=== PATIENT | male | born 1965 | race Caucasian/White ===

== ENCOUNTER 2022-07-13 13:52 | Outpatient (CLI) | payer OTHER, MEDICAID, SELFPAY ==
--- NOTE | 2022-07-13 06:00 | DI.RAD_ITS ---
Exam(s) XR PAIN CLINIC FLUORO JOINT IN EXAM: XR PAIN CLINIC FLUORO JOINT IN CLINICAL HISTORY: Dx: Osteoarthritis of the knee TECHNIQUE: 2D and realtime digital imaging was performed. COMPARISON: No exams were available for comparison FINDINGS: C-arm fluoroscopy was utilized by Dr. Benavides. Please see Dr. Benavides procedure note. IMPRESSION: RADIATION DOSE DELIVERED: saray Garsia 4.76 mGy
[2022-07-13 14:17] VITALS: BP 127/81; PULSE 61; RESP 20; TEMP 37; O2SAT 94
--- NOTE | 2022-07-13 14:56 | PDOC.PAIN_ITS ---
Pain Clinic Procedure Note Procedure Note Procedure Note: RIGHT GENICULAR NERVE BLOCK Date of Service: July 13, 2022 Patient: YVETTE BOOKER Provider: Murali Benavides DO, MPH Pre-operative diagnosis: Right knee pain Post-operative diagnosis: Same Pre-procedure pain: VAS= 8/10 COMMENTS: He was previously evaluated by orthopedics and his PCP. Many treatments have been attempted without significant relief. YVETTE BOOKER has been referred to the [facility] for RIGHT ge nicular nerve block. YVETTE was interviewed and the medical record reviewed. There were no medical, pharmacologic, radiographic or other structural contraindications to attempting fluoroscopically guided RIGHT genicular nerve block. Risks and potential side effects as well as potential benefit of the procedure were reviewed with YVETTE, and HIS voiced concerns were addressed. After I believed that the patient was completely informed, the printed consent form was signed. Standard time-out procedure was performed. YVETTE was placed in the supine position on the fluoroscopy table and automated blood pressure cuff and pulse oximeter applied. The skin entry points for approaching RIGHT superolateral genicular nerve, the superomedial genicular nerve, the terminal branch of the nerve vastus intermedius and the inferomedial genicular was identified under the most advantageous fluoroscopic view and marked. Following thorough Chlorhexadine preparation of the skin and draping, 1% lidocaine infiltration of the skin entry point and subcutaneous tissues was accomplished using a 1.5 25G needle. Next, the 3.5 25G spinal needle was advanced to os at the location of the specific nerve root using fluoroscopic guidance. Next, 1 ml of 0.5% Bupivacaine was injected at each site. The needles were removed without difficulty. YVETTE's vital signs were stable throughout the procedure and were as recorded in the docflowsheet by the nursing staff. If given, dosages of intravenous drugs for anxiolysis and analgesia were documented in MAR. Follow up plans and appointments were discussed with the YVETTE . Post procedure instruction was given as documented in nursing documentation and having met discharge criteria, YVETTE was discharged from the [facility]. COMMENTS: No apparent complications. Post-procedure pain: VAS = 0/10. The patient will keep track of her RIGHT knee pain over the next four hours. If YVETTE has sufficient pain relief, YVETTE will be a candidate for radiofrequency ablation at the same nerves. Micky WJ1, Abdullahi SJ, Cristi SalehG, Naman SalehG, Michele MAI, Florina PH, Santino JW. Radiofrequency treatment relieves chronic knee osteoarthritis pain: a double-blind randomized controlled trial. Pain. 2011 Dec;152(3):481-7. doi: 10.1016/j.pain.2010.09.029. Adelia S1, Ilan ON2, Cam Y3, ?zl?lerden P2, Satish U1, Dong ?m?rl? I. Which one is more effective for the clinical treatment of chronic pain in knee osteoarthritis: radiofrequency neurotomy of the genicular nerves or intra- articular injection? Int J Rheum Dis. 2016 May 27. F/U with our office with his 1-4 hour post-procedure pain scores. Murali Benavides DO, MPH [facility]
[2022-07-13] MEDS: Bupivacaine 0.5% Pres-Free 10 ML VIAL IJ (15:08)
[2022-07-13] MEDS: Omnipaque 240 MG/ML 50 ML BTL IJ (15:08)
[2022-07-13 15:09] VITALS: PULSE 77; O2SAT 98
== END 2022-07-13 13:53 | disposition home or self-care (01) ==
LOC: PC 13:54
PROVIDERS: PCP Physician Assistant; Visit Provider Preventive Medicine Occupational Medicine
DX: M25.561 Pain in right knee (principal)
CPT/HCPCS: 64454; 77002; Q9967

== ENCOUNTER 2022-08-24 13:01 | Outpatient (CLI) | payer MEDICARE, MEDICAID, SELFPAY ==
--- NOTE | 2022-08-24 06:00 | DI.RAD_ITS ---
Exam(s) XR PAIN CLINIC FLUORO JOINT IN EXAM: XR PAIN CLINIC FLUORO JOINT IN CLINICAL HISTORY: DX: right knee osteoarthritis TECHNIQUE: 2D and realtime digital imaging was performed. CONTRAST MATERIAL: Refer to procedure report. COMPARISON: No exams were available for comparison FINDINGS: Fluoroscopy was provided for Dr. Benavides during the performance of a right lower extremity injection. Please refer to the procedure report for complete details. Ka,r=3.9 mGy IMPRESSION:
[2022-08-24] MEDS: Midazolam 2 MG/2 ML VIAL IVP (13:51)
[2022-08-24] MEDS: Lactated Ringers 500 ML 80 ML IV (14:14)
[2022-08-24 14:25] VITALS: BP 144/92; PULSE 77; RESP 18; O2SAT 95
--- NOTE | 2022-08-24 14:28 | PDOC.PAIN_ITS ---
Date of service: 08/24/22 Time of Service: 14:28 Pain Clinic Procedure Note Procedure Note Procedure Note: RIGHT GENICULAR NERVE RADIOFREQUENCY ABLATION WITH THE COOLIEF MACHINE Date of Service: August 24, 2022 Patient: Ariana Canas Provider: Murali Benavides DO, MPH Pre-procedure pain VAS 6/10. Pre-operative diagnosis: Right knee pain Post-operative diagnosis: Right knee pain COMMENTS: Previous Genicular nerve block to the RIGHT knee. Ariana Canas has been referred to the [facility] for RIGHT genicular nerve radiofrequency ablation. Ariana was interviewed and the medical record reviewed. There were no medical, pharmacologic, radiographic or other structural contraindications to attempting fluoroscopically guided RIGHT genicular nerve radiofrequency ablation. Risks and potential side effects as well as potential benefit of the procedure were reviewed with Ariana Canas , and HIS voiced concerns were addressed. After I believed that the patient was completely informed, the printed consent form was signed. Standard time-out procedure was performed. Ariana was placed in the supine position on the fluoroscopy table and automated blood pressure cuff and pulse oximeter applied. The skin entry points for approaching RIGHT superolateral genicular nerve, the superomedial genicular nerve and the inferomedial genicular was identified under the most advantageous fluoroscopic view and marked. Following thorough Chlorhexadine preparation of the skin and draping, 1% lidocaine infiltration of the skin entry point and subcutaneous tissues was accomplished using a 1.5 25G needle. Next, the 10 cm 18G RF Cannula with a 10 mm active tip was advanced to os at the location of the specific nerve roots (3) using fluoroscopic guidance. Next, sensory and motor testing was performed and no abnormal findings were found. Next, 1 cc of 2% Lidocaine was injected at each site. The lesion was then created with 80 degrees C for 90 seconds. Each needle was advance 1 cm and the lesion was completed again. Each cannula was advanced until the tip reached the posterior aspect of the bone shaft. 1/3 cc of Depomedrol (40 mg/cc) was then injected at each site followed by 2 cc of 0.5% Bupivacaine as the needle was withdrawn. The needles were removed without difficulty. Ariana's vital signs were stable throughout the procedure and were as recorded in the docflowsheet by the nursing staff. If given, dosages of intravenous drugs for anxiolysis and analgesia were documented in MAR. Follow up plans and appointments were discussed with the Ariana Canas . Post procedure instruction was given as documented in nursing documentation and having met discharge criteria, Ariana was discharged from the [facility]. COMMENTS: No complications. Post-procedure pain VAS was 1/10. Micky WJ1, Abdullahi SJ, Cristi JG, Naman SalehG, Michele MAI, Florina PH, Santino JW. Radiofrequency treatment relieves chronic knee osteoarthritis pain: a double-blind randomized controlled trial. Pain. 2011 Dec;152(3):481-7. doi: 10.1016/j.pain.2010.09.029. Adelia S1, Ilan ON2, Cam Y3, ?zl?lerden P2, Satish U1, Dong ?m?rl? I. Which one is more effective for the clinical treatment of chronic pain in knee osteoarthritis: radiofrequency neurotomy of the genicular nerves or intra- articular injection? Int J Rheum Dis. 2016 May 27. F/U with our office as needed Murali Benavides DO, MPH [facility]-Pain Management [facility]
[2022-08-24] MEDS: methylPREDNISolone ACETATE 40 MG/ML VIAL IJ (14:29)
[2022-08-24] MEDS: Lidocaine 2% Pres-Free 5 ML VIAL IJ (14:29)
[2022-08-24] MEDS: Bupivacaine 0.5% Pres-Free 10 ML VIAL IJ (14:29)
== END 2022-08-24 13:02 | disposition home or self-care (01) ==
PROVIDERS: PCP Physician Assistant; Visit Provider Preventive Medicine Occupational Medicine
DX: M25.561 Pain in right knee (principal)
CPT/HCPCS: 64624; 77002; J1030; J2250

== ENCOUNTER 2024-03-07 11:26 | Outpatient (CLI) | payer MEDICARE, MEDICAID, SELFPAY ==
--- NOTE | 2024-03-07 06:00 | DI.RAD_ITS ---
Exam(s) XR PAIN CLINIC FLUORO JOINT IN EXAM: XR PAIN CLINIC FLUORO JOINT IN CLINICAL HISTORY: DX: Right knee Osteoarthritis. TECHNIQUE: Fluoroscopy was provided for the referring physician for guidance with performing pain cl inic injection procedure. COMPARISON: No exams were available for comparison FINDINGS: Please see procedure note for details. Fluoro time: 52.4 seconds RADIATION DOSE DELIVERED: saray Garsia=3.54 mGy
[2024-03-07 11:40] VITALS: BP 163/89; PULSE 74; RESP 20; TEMP 36.7; O2SAT 94
[2024-03-07] MEDS: Lactated Ringers 500 ML 80 ML IV (12:40)
[2024-03-07] MEDS: fentaNYL 100 MCG/2 ML VIAL IVP (12:40)
[2024-03-07] MEDS: Nerve Block Tray 1 EACH MC (13:13)
[2024-03-07] MEDS: Lidocaine 2% Multi-Dose 20 ML VIAL IJ (13:15)
[2024-03-07] MEDS: Bupivacaine 0.5% Pres-Free 10 ML VIAL IJ (13:15)
[2024-03-07] MEDS: methylPREDNISolone ACETATE 40 MG/ML VIAL IJ (13:16)
[2024-03-07 13:21] VITALS: BP 137/97; PULSE 77; RESP 13; O2SAT 91
--- NOTE | 2024-03-07 13:28 | PDOC.PAIN_ITS ---
Date of service: 03/07/24 Time of Service: 13:28 Pain Managment Procedure Note Procedure Note Procedure Note: PROCEDURE NOTE RIGHT GENICULAR NERVE RADIOFREQUENCY ABLATION Date of Service: March 07, 2024 Patient: Ariana Canas Provider: Marguerite Mosley DO, MPH Ariana Canas has been referred to the [facility] for Right genicular nerve radiofrequency ablation with the [employer] machine. Pre-operative diagnosis: Pain in right knee M25.561 Post-operative diagnosis: Same Pre-Procedure Pain: VAS=8/10 Comments: Previous genicular nerve blocks to the Right knee. He had >6 months of >50% pain relief with his last right knee RFA. PROCEDURE: 1. Superolateral genicular branch from the vastus lateralis 2. Superomedial genicular branch from the vastus medialis 3. Inferomedial genicular branch from the saphenous nerve 4. Terminal branch of the nerve vastus intermedius Ariana was interviewed and the medical record reviewed. There were no medical, pharmacologic, radiographic or other structural contraindications to attempting fluoroscopically guided Right genicular nerve radiofrequency ablation. Risks and potential side effects as well as potential benefit of the procedure were reviewed with Ariana Canas , and the patient's voiced concerns were addressed. After I believed that the patient was completely informed, the printed consent form was signed. Standard time-out procedure was performed. Ariana Canas was brought into brought to the procedure room and placed on the fluoroscopy table in a comfortable supine position and automated blood pressure cuff and pulse oximeter applied. A grounding pad was placed on the right ankle. The place for needle placement was obtained by manual palpation with radiographic confirmation. The skin entry points for approaching Right superolateral genicular nerve, the superomedial genicular nerve, nerve of the vastus intermedius and the inferomedial genicular was identified under the most advantageous fluoroscopic view and marked. Following thorough Chlorhexadine preparation of the skin and draping, 1% lidocaine infiltration of the skin entry point and subcutaneous tissues was accomplished using a 1.5 25G needle. Next, the 17G 50 mm radiofrequency cannula needle with a 4mm active tip was advanced to os at the location of the specific nerve roots (4) using fluoroscopic guidance. Next, m otor testing was performed and no abnormal findings were found. Next, 1 cc of 2% Lidocaine was injected at each site after negative aspiration. The lesion was then created with 80 degrees Celsius for 2 minutes and 30 seconds each. 1/4 cc of Depo-Medrol (40 mg/cc) was then injected at each site followed by 1 cc of 0.5% Bupivacaine as the needle was withdrawn. There was no unusual discomfort expressed by Ariana. The needles were withdrawn without difficulty. Ariana was observed and was without hemodynamic, neurologic, or allergic reactions.? Fluoroscopic images were digitally archived. Ariana's vital signs were stable throughout the procedure and were as recorded in the docflowsheet by the nursing staff. If given, dosages of intravenous drugs for anxiolysis and analgesia were documented in MAR. POST PROCEDURE EVALUATION: IMPRESSION: 1. Medication given is documented in the MAR 2. Follow up plan: Ariana to contact [facility] as needed. This procedure may be repeated if the patient achieves at least 50% improvement in pain and/or function for at least 6 months. 3. Estimated Blood Loss: <5ml 4. Fluoroscopy time: Documented in the EMR Follow up plans and appointments were discussed with Ariana. Post procedure instruction was given as documented in nursing documentation and having met discharge criteria, Ariana was discharged from the [facility]. COMMENTS: No apparent complications. Post-procedure pain: VAS= 3/10. Weeks WJ1, Abdullahi SJ, Cristi JG, Naman JG, Michele MAI, Florina PH, Santino JW. Radiofrequency treatment relieves chronic knee osteoarthritis pain: a double-blind randomized controlled trial. Pain. 2010;152(3):481-7. doi: 10.1016/j.pain.2010.09.029. Adelia S1, Ilan ON2, Cam Y3, ?zl?brayden P2, Satish U1, Dong ?m?rl? I. Which one is more effective for the clinical treatment of chronic pain in knee osteoarthritis: radiofrequency neurotomy of the genicular nerves or intra-articular injection? Int J Rheum Dis. 2016 May 27. I personally completed the entire procedure. MARGUERITE MOSLEY DO, MPH [facility] - Subspecialty board certification in Pain Medicine [facility]
== END 2024-03-07 11:27 | disposition home or self-care (01) ==
PROVIDERS: PCP Registered Nurse; Visit Provider Preventive Medicine Occupational Medicine
DX: M25.561 Pain in right knee (principal)
CPT/HCPCS: 64624; 77002; J0665; J1010; J2003; J3010

== ENCOUNTER → 2024-04-24 14:09 | Outpatient (CLI) | payer MEDICARE, MEDICAID, SELFPAY ==
--- NOTE | 2024-04-24 13:13 | DI.RAD_ITS ---
Exam(s) XR KNEE LT 3V AP,LAT,MAL EXAM: XR KNEE LT 3V AP,LAT,MAL CLINICAL HISTORY: M25.562 Left knee pain - likely medial OA. TECHNIQUE: 2D digital imaging was performed. Three views. COMPARISON: CR LEFT KNEE LIMITED 1 OR 2 VIEWS from 05/24/2016 FINDINGS: BONES: No acute fracture is present. No bony destructive lesion is seen. JOINTS: Mild medial femoral tibial joint space narrowing. Spurring at the medial femoral condyle and medial tibial plateau. No joint effusion is seen. SOFT TISSUE: Posterior loose body, likely in a Grande's cyst. IMPRESSION: Mild degenerative changes of the medial femoral tibial joint. Loose body in Grande cyst. DATA REPOSITORY: RADIATION DOSE DELIVERED:
--- OUTSIDE RECORDS SUMMARY | 2024-04-24 14:11 | XMS_ITS | Continuity of Care Document ---
Author Name Unknown Organization [facility] Address [address] [place] [address] Care Team Providers Care Spraying Machine Operator Name Role Phone Ray Bowen Primary Care Physician [facility] Date[facility]s): 10/25/22 - 10/25/22 [facility] [address] [place] [address] Discharge Disposition: Home or Self Care Attending Physician: Ray Bowen NP Admitting Physician: Ray Bowen NP Referring Physician: Ray Bowen TIE TAMPER Allergies, Adverse Reactions, Alerts Substance Reaction Severity Status doxycycline Mild Active amitriptyline 1 Dizziness Unknown Active buPROPion Unknown Active 1%22out of it%22 all the time-hard time waking up. very fatigued-i Assessment and Plan Future Appointments Future Scheduled Tests Radiology* CT Sinus w/ Contrast 10/26/22 Immunizations Given and Recorded Vaccine Date Status Refusal Reason tetanus/diphth/pertuss (Tdap) adult/adol 06/24/22 Given tetanus/diphth/pertuss (Tdap) adult/adol 12/04/20 Recorded tetanus/diphth/pertuss (Tdap) adult/adol 07/18/11 Recorded influenza, unspecified formulation 07/03/21 Record ed SARS-CoV-2 (COVID-19) mRNA-1273 vaccine 02/05/21 R ecorded SARS-CoV-2 (COVID-19) mRNA-1273 vaccine 01/08/21 R ecorded influenza virus vaccine, live 06/26/20 Recorded influenza virus vaccine, inactivated 07/25/14 Freddie rded influenza virus vaccine, inactivated 06/27/13 Freddie rded influenza virus vaccine, inactivated 08/21/12 Freddie rded influenza virus vaccine, inactivated 07/18/11 Freddie rded influenza virus vaccine, inactivated 10/04/10 Freddie rded influenza virus vaccine, inactivated 09/29/09 Freddie rded Medications cetirizine 10 mg oral tablet 10 mg = 1 tab, Oral, Daily, Take one tab daily., # 90 tab, 1 Refill(s), Pharmacy: [id number], 185, cm, 06/24/22 10:48:00 EDT, Height/Length Dosing, 133.81, kg, 06/24/22 10:48:00 EDT, WeightDosing Start Date: 09/19/22 Status: Ordered cyclobenzaprine 5 mg oral tablet 5 mg = 1 tab, Oral, TID, # 30 tab, 0 Refill(s), Pharmacy: [id number], 185.45, cm, 10/20/22 1:05:00 EST, Height/Length Dosing, 147.95, kg, 10/20/22 1:05:00 EST, Weight Dosing Start Date: 10/20/22 Stop Date: 10/30/22 Status: Ordered fluticasone 27.5 mcg/inh nasal spray 2 sprays, Nasal, Daily, PRN as needed for allergy symptoms, # 10 g, 0 Refill(s), Pharmacy: [facility], 185, cm, 06/24/22 10:48:00 EDT, Height/Length Dosing, 133.81, kg, 06/24/22 10:48:00 EDT, Weight Dosing Start Date: 09/16/22 Status: Ordered lisinopril 2.5 mg oral tablet 2.5 mg = 1 tab, Oral, Daily, # 90 tab, 3 Refill(s), Pharmacy: [facility], 185, cm, 06/24/22 10:48:00 EDT, Height/Length Dosing, 133.81, kg, 06/24/22 10:48:00 EDT, Weight Dosing Start Date: 09/25/22 Status: Ordered meloxicam 15 mg oral tablet 15 mg = 1 tab, Oral, Daily, Take with food, DON NOT TAKE WITH OTHER NSAID's, # 30 tab, 1 Refill(s),Pharmacy: [facility], 185, cm, 06/24/22 10:48:00 EDT, Height/Length Dosing, 133.81, kg, 06/24/22 10:48:00 EDT, Weight Dosing Start Date: 09/16/22 Status: Ordered omeprazole 20 mg oral delayed release capsule See Instructions, TAKE ONE CAPSULE BY MOUTH EVERY DAY, # 90 cap, 1 Refill(s), Pharmacy: [facility], 185, cm, 06/24/22 10:48:00 EDT, Height/Length Dosing, 133.81, kg, 06/24/22 10:48:00 EDT, Weight Dosing Start Date: 07/18/22 Status: Ordered simvastatin 20 mg oral tablet 20 mg = 1 tab, Oral, every night at bedtime, # 90 tab, 0 Refill(s) Start Date: 04/27/22 Status: Ordered tamsulosin 0.4 mg oral capsule 0.4 mg = 1 cap, Oral, Daily, TAKE TWO CAPSULES BY MOUTH EVERY DAY, # 90 cap, 3 Refill(s), Pharmacy:[id number], 185, cm, 06/24/22 10:48:00 EDT, Height/Length Dosing, 133.81, kg, 06/24/22 10:48:00 EDT, Weight Dosing Start Date: 10/05/22 Status: Ordered Ventolin HFA 90 mcg/inh inhalation aerosol 2 puffs, Inhale, every 4 hr, PRN as needed for wheezing, # 18 g, 2 Refill(s), Pharmacy: [facility], 185, cm, 06/24/22 10:48:00 EDT, Height/Length Dosing, 133.81, kg, 06/24/22 10:48:00 EDT, Weight Dosing Start Date: 09/19/22 Status: Ordered Problem List Condition Confirmation Course Effective Dates Status H ealth Status Informant AAA (abdominal aortic aneurysm) Confirmed Active BMI 40.0-44.9, adult Confirmed Active Cervical radiculopathy Confirmed Active Degeneration of lumbar intervertebral disc Confirmed Active Essential hypertension Confirmed 12/22/20 Active Gastroesophageal reflux disease without esophagitis Confirmed 12/04/20 Active Generalized anxiety disorder Confirmed Active Hyperlipidemia Confirmed Active Injury of tendon of the rotator cuff of shoulder Confirmed Active Insomnia Confirmed Active Kidney stone Confirmed Active Low back pain Confirmed Active Lower urinary tract symptoms due to benign prostatic hypertrophy Confirmed 12/04/20 Active Male infertility Confirmed Active Microscopic hematuria Confirmed Active Mononeuritis Confirmed Active Opioid abuse Confirmed Active Osteoarthritis of right knee joint Confirmed 10/01/21 Active Pain in thoracic spine Confirmed Active Chronic pain of right knee Confirmed Active Pain of left shoulder joint Confirmed 03/08/21 Active Prediabetes Confirmed 08/07/21 Active Sleep apnea Confirmed Active Smoker Confirmed 12/04/20 Active Snoring Confirmed Active Tremor Confirmed Active Ureteric stone Confirmed Active Procedures Procedure Date Related Diagnosis Body Site Status Appendectomy Completed Results Laboratory List Name Date Automated Diff 10/25/22 CBC w/ Diff 10/25/22 Comprehensive Metabolic Panel (CMP) 10/25 Lipid Panel 10/25/22 Most recent to oldest [Reference Range]: 1 WBC [5.0-10.0 x10^3/mcL] 12.2 x10^3/mcL *HI* (10/25/22 9:24 AM) RBC [4.6-6.0 x10^6/mcL] 5.3 x10^6/mcL (10/25/22 9:24 AM) Neutro Auto [40.0-75.0 %] 66.0 % (10/25/22 9:24 AM) Lymph Auto [20.0-50.0 %] 24.6 % (10/25/22 9:24 AM) Whiteside Auto [2.0-15.0 %] 6.5 % (10/25/22 9:24 AM) Basophil Auto [0.0-1.0 %] 0.8 % (10/25/22 9:24 AM) BUN [7-18 mg/dL] 10 mg/dL (10/25/22 9:24 AM) Cholesterol Total [50-200 mg/dL] 124 mg/ dL (10/25/22 9:24 AM) LDL [0-130 mg/dL] 59 mg/dL (10/25/22 9:24 AM) Glucose Level [74-106 mg/dL] 123 mg/dL *HI* (10/25/22 9:24 AM) Potassium Level [3.5-5.1 mmol/L] 4.0 mmo l/L (10/25/22 9:24 AM) MCV [80.0-96.0] 87.7 (10/25/22 9:24 AM) HDL [40-60 mg/dL] 32 mg/dL *LOW* (10/25/2224 AM) AST [15-37 unit/L] 14 unit/L *LOW* (10/25/22: AM) ALT [16-63 unit/L] 25 unit/L (10/25/22:24 AM) MCHC [31.0-35.0 g/dL] 33.8 g/dL (10/25/22:24 AM) Sodium Level [136-145 mmol/L] 135 mmol/L *LOW* (10/25/22:24 AM) Hct [41.0-51.0 %] 46.4 % (10/25/22 AM) Triglycerides [0-150 mg/dL] 164 mg/dL *HI* (10/25/22 AM) Calcium Level [8.5-10.1 mg/dL] 9.0 mg/dL (10/25/22: AM) Albumin Level [3.4-5.0 g/dL] 4.0 g/dL (10/25/22: AM) Protein Total [6.4-8.2 g/dL] 7.4 g/dL (10/25/22:24 AM) MCH [26.0-32.0 pg] 29.7 pg (10/25/22:24 AM) Neutro Absolute 8.1 x10^3/mcL *NA* (10/25/22: AM) Bilirubin Total [0.2-1.0 mg/dL] 0.7 mg/d L (10/25/22:24 AM) Hgb [14.0-18.0 g/dL] 15.7 g/dL (10/25/22:24 AM) Alk Phos [46-146 unit/L] 74 unit/L (10/25/22:24 AM) Platelets [130-450 x10^3/mcL] 211 x10^3/ mcL (10/25/22 9:24 AM) CO2 [21-32 mmol/L] 32 mmol/L (10/25/22:24 AM) eGFR Non-AA [>=60] 80 (1/10/23 9:24 AM) eGFR AA [>=60] 80 (10/25/22 9:24 AM) Chloride Level [98-107 mmol/L] 98 mmol/L (10/25/22 9:24 AM) RDW-CV [11.5-17.0 %] 13.1 % (10/25/22 9:24 AM) Imm Gran Auto [0.0-0.9 %] 0.6 % (10/25/22 9:24 AM) Creatinine Level [0.70-1.30 mg/dL] 1.08 mg/dL (10/25/22 9:24 AM) Eos, Auto [1.0-6.0 %] 1.5 % (10/25/22 9:24 AM) Social History Social History Type Response Tobacco Current everyday tob acco user Tobacco Use:. Down from a pack and a half to a pack now. per day. Sex Male Patient Care team information Personnel Name: Ray Bowen NP
--- OUTSIDE RECORDS SUMMARY | 2024-04-24 14:11 | XMS_ITS | Continuity of Care Document ---
Author Name Unknown Organization [facility] Address [address] [place] [address] Care Team Providers Care Heavy Equipment Supervisor Name Role Phone Ray Bowen Primary Care Physician Encounter [facility] Date(s): 09/16/22 - 09/16/22 [facility] [address] [place] [address] Discharge Disposition: Home or Self Care Attending Physician: Ray Bowen NP Admitting Physician: Ray Bowen NP Referring Physician: Ray Bowen SADDLE STITCH OPERATOR Allergies, Adverse Reactions, Alerts Substance Reaction Severity Status amitriptyline 1 Dizziness Unknown Active buPROPion Unknown Active 1%22out of it%22 all the time-hard time waking up. very fatigued-i Assessment and Plan Future Appointments Diagnostic Tests Pending * Urinalysis Notify Lab 09/16/22 Future Scheduled Tests Radiology* CT Renal Stone Study 09/16/22 Immunizations Given and Recorded Vaccine Date Status [...] virus vaccine, inactivated 09/29/09 Freddie rded Medications doxycycline hyclate 100 mg oral capsule 100 mg = 1 cap, Oral, BID, # 20 cap, 0 Refill(s), Pharmacy: [facility], 185, cm, 06/24/2210:48:00 EDT, Height/Length Dosing, 133.81, kg, 06/24/22 10:48:00 EDT, Weight Dosing Start Date: 09/16/22 Stop Date: 09/26/22 Status: Ordered fluticasone 27.5 mcg/inh nasal spray 2 sprays, Nasal, Daily, PRN as needed for allergy symptoms, # 10 g, 0 Refill(s), Pharmacy: [facility], 185, cm, 06/24/22 10:48:00 EDT, Height/Length Dosing, 133.81, kg, 06/24/22 10:48:00 EDT, Weight Dosing Start Date: 09/16/22 Status: Ordered lisinopril 2.5 mg oral tablet See Instructions, TAKE ONE TABLET BY MOUTH EVERY DAY, # 90 tab, 1 Refill(s), Pharmacy: [facility], 185, cm, 05/02/22 11:16:00 EDT, Height/Length Dosing, 133.8, kg, 05/02/22 11:16:00 EDT, Weight Dosing Start Date: 06/13/22 Status: Ordered meloxicam 15 mg oral tablet 15 mg = 1 tab, Oral, Daily, Take with food, DON NOT TAKE WITH OTHER NSAID's, # 30 tab, 1 Refill(s),Pharmacy: [facility], 185, cm, 06/24/22 10:48:00 EDT, Height/Length Dosing, 133.81, kg, 06/24/22 10:48:00 EDT, Weight Dosing Start Date: 09/16/22 Status: Ordered omeprazole 20 mg oral delayed release capsule See Instructions, TAKE ONE CAPSULE BY MOUTH EVERY DAY, # 90 cap, 1 Refill(s), Pharmacy: [facility], 185, cm, 06/24/22 10:48:00 EDT, Height/Length Dosing, 133.81, kg, 06/24/22 10:48:00 EDT, Weight Dosing Start Date: 07/18/22 Status: Ordered simvastatin 20 mg oral tablet 20 mg = 1 tab, Oral, every night at bedtime, # 90 tab, 0 Refill(s) Start Date: 04/27/22 Status: Ordered tamsulosin 0.4 mg oral capsule TAKE TWO CAPSULES BY MOUTH EVERY DAY Start Date: 04/27/22 Status: Ordered Problem List Condition Confirmation Course Effective Dates Status H ealth Status Informant Body mass index 30+ - obesity Confirmed 12/04/20 Active BMI 40.0-44.9, adult Confirmed Active Cervical [...] Appendectomy Completed Results Laboratory List Name Date .Urinalysis POCT 09/16/22 Most recent to oldest [Reference Range]: 1 Method of Collect POC Clean Catch *NA* (09/16/22 11:06 AM) Specific [place], Ur POC >1.030 *NA* (09/16/22 11:06 AM) Specimen Color POC Yellow *NA* (09/16/22 11:06 AM) Glucose, Urine POC [Negative] Negative (09/16/22 11:06 AM) Bilirubin, Urine POC [Negative] Negative (09/16/22 11:06 AM) Ketones, Urine POC [Negative] Negative (09/16/22 11:06 AM) Blood, Urine POC [Negative] Negative (09/16/22 11:06 AM) pH, Urine POC 5.5 *NA* (09/16/22 11:06 AM) Protein, Urine POC [Negative] Negative (09/16/22 11:06 AM) Urobilinogen, Urine POC Normal (09/16/22 11:06 AM) Nitrite, Urine POC [Negative] Negative (09/16/22 11:06 AM) Leuk Esterase, Urine POC [Negative] Nega tive (09/16/22 11:06 AM) Clarity, Urine POC [Clear] Clear (09/16/22 11:06 AM) Social History Social History Type Response Tobacco Current everyday tob acco user Tobacco Use:. 1 1/2 pk daily per day. Sex Male Patient Care team information Personnel Name: Ray Bowen NP
--- OUTSIDE RECORDS SUMMARY | 2024-04-24 14:11 | XMS_ITS | Continuity of Care Document ---
Author Name Unknown Organization [facility] Address [address] [place] [address] Care Team Providers Care Test Driver Name Role Phone Ray Bowen Primary Care Physician [facility]counter [facility] Date(s): 09/19/22 - 09/19/22 [facility] [address] [place] [address] Encounter Diagnosis Dysuria(Discharge Diagnosis) - 09/19/22 Discharge Disposition: Home or Self Care Attending Physician: Ray Bowen BLACKSMITH HELPER Admitting Physician: Ray Bowen NP Referring Physician: Ray Bowen BLACKSMITH HELPER Allergies, Adverse Reactions, Alerts Substance Reaction Severity Status amitriptyline 1 Dizziness Unknown Active buPROPion Unknown Active 1%22out of it%22 all the time-hard time waking up. very fatigued-i Assessment and Plan Future Appointments Immunizations Given and Recorded Vaccine Date Status [...] daily., # 90 tab, 1 Refill(s), Pharmacy: [facility] #[facility], 185, cm, 06/24/22 10:48:00 EDT, Height/Length Dosing, 133.81, kg, 06/24/22 10:48:00 EDT, WeightDosing Start Date: 09/19/22 Status: Ordered doxycycline hyclate 100 mg oral capsule 100 mg = 1 cap, Oral, BID, # 20 cap, 0 Refill(s), Pharmacy: [facility] #[facility], 185, cm, 06/24/2210:48:00 EDT, Height/Length Dosing, 133.81, kg, 06/24/22 10:48:00 EDT, Weight Dosing Start Date: 09/16/22 Stop Date: 09/26/22 Status: Ordered fluticasone 27.5 mcg/inh nasal spray 2 sprays, Nasal, Daily, PRN as needed for allergy symptoms, # 10 g, 0 Refill(s), Pharmacy: [facility] #[facility], 185, cm, 06/24/22 10:48:00 EDT, Height/Length Dosing, 133.81, kg, 06/24/22 10:48:00 EDT, Weight Dosing Start Date: 09/16/22 Status: Ordered lisinopril 2.5 mg oral tablet See Instructions, TAKE ONE TABLET BY MOUTH EVERY DAY, # 90 tab, 1 Refill(s), Pharmacy: [facility] #58, 185, cm, 05/02/22 11:16:00 EDT, Height/Length Dosing, 133.8, kg, 05/02/22 11:16:00 EDT, Weight Dosing Start Date: 06/13/22 Status: Ordered meloxicam 15 mg oral tablet 15 mg = 1 tab, Oral, Daily, Take with food, DON NOT TAKE WITH OTHER NSAID's, # 30 tab, 1 Refill(s),Pharmacy: [facility] #[facility], 185, cm, 06/24/22 10:48:00 EDT, Height/Length Dosing, 133.81, kg, 06/24/22 10:48:00 EDT, Weight Dosing Start Date: 09/16/22 Status: Ordered omeprazole 20 mg oral delayed release capsule See Instructions, TAKE ONE CAPSULE BY MOUTH EVERY DAY, # 90 cap, 1 Refill(s), Pharmacy: [facility] #[facility], 185, cm, 06/24/22 10:48:00 EDT, Height/Length Dosing, 133.81, kg, 06/24/22 10:48:00 EDT, Weight Dosing Start Date: 07/18/22 Status: Ordered simvastatin 20 mg oral tablet 20 mg = 1 tab, Oral, every night at bedtime, # 90 tab, 0 Refill(s) Start Date: 04/27/22 Status: Ordered tamsulosin 0.4 mg oral capsule TAKE TWO CAPSULES BY MOUTH EVERY DAY Start Date: 04/27/22 Status: Ordered Ventolin HFA 90 mcg/inh inhalation aerosol 2 puffs, Inhale, every 4 hr, PRN as needed for wheezing, # 18 g, 2 Refill(s), Pharmacy: [facility] #[facility], 185, cm, 06/24/22 10:48:00 EDT, Height/Length [...] Related Diagnosis Body Site Status Appendectomy Completed Social History Social History Type Response Tobacco Current everyday tob acco user Tobacco Use:. 1 1/2 pk daily per day. Sex Male Patient Care team information Personnel Name: Ray Bowen NP
--- OUTSIDE RECORDS SUMMARY | 2024-04-24 14:11 | XMS_ITS | Continuity of Care Document ---
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 [address] [place] [address] Encounter Diagnosis Lumbar back pain with radiculopathy affecting right lower extremity(Discharge Diagnosis) - 10/20/22 Discharge Disposition: Home or Self Care Attending Physician: Winston Zepeda MD Admitting Physician: Winston Zepeda MD Allergies, Adverse Reactions, Alerts Substance Reaction Severity Status doxycycline Mild Active amitriptyline 1 Dizziness Unknown Active buPROPion Unknown Active 1%22out of it%22 all the time-hard time waking up. very fatigued-i Assessment and Plan Extracted from: Title:Clinical Document Author:Taisha Theodore te:10/20/22 Diagnosis: 1. Lumbar back pa in with radiculopathy affecting right lower extremity Comment: Diagnosis: Back pain Comment: Future Appointments Future Scheduled Tests Laboratory* CBC w/ Diff 10/19/22 * Comprehensive Metabolic Panel 10/19/22 * Lipid Panel 10/19/22 Functional Status 10/20/22 Recent Travel History No recent travel Other exposure to Infectious Disease Non e Immunizations Given and Recorded Vaccine Date Status [...] daily., # 90 tab, 1 Refill(s), Pharmacy: [facility], 185, cm, 06/24/22 10:48:00 EDT, Height/Length Dosing, 133.81, kg, 06/24/22 10:48:00 EDT, WeightDosing Start Date: 09/19/22 Status: Ordered cyclobenzaprine 5 mg oral tablet 5 mg = 1 tab, Oral, TID, # 30 tab, 0 Refill(s), Pharmacy: [facility], 185.45, cm, 10/20/22 1:05:00 EST, Height/Length Dosing, 147.95, kg, 10/20/22 1:05:00 EST, Weight Dosing Start Date: 10/20/22 Stop Date: 10/30/22 Status: Ordered doxycycline hyclate 100 mg oral capsule 100 mg = 1 cap, Oral, BID, # 20 cap, 0 Refill(s), Pharmacy: [facility], 185, cm, 06/24/2210:48:00 EDT, Height/Length Dosing, 133.81, kg, 06/24/22 10:48:00 EDT, Weight Dosing Start Date: 09/16/22 Stop Date: 09/26/22 Status: Ordered fluticasone 27.5 mcg/inh nasal spray 2 sprays, Nasal, Daily, PRN as needed for allergy symptoms, # 10 g, 0 Refill(s), Pharmacy: [facility], 185, cm, 06/24/22 10:48:00 EDT, Height/Length Dosing, 133.81, kg, 06/24/22 10:48:00 EDT, Weight Dosing Start Date: 09/16/22 Status: Ordered lisinopril 2.5 mg oral tablet 2.5 mg = 1 tab, Oral, Daily, # 90 tab, 3 Refill(s), Pharmacy: [facility], 185, cm, 06/24/22 10:48:00 EDT, Height/Length Dosing, 133.81, kg, 06/24/22 10:48:00 EDT, Weight Dosing Start Date: 09/25/22 Status: Ordered meloxicam 15 mg oral tablet 15 mg = 1 tab, Oral, Daily, Take with food, DON NOT TAKE WITH OTHER NSAID's, # 30 tab, 1 Refill(s),Pharmacy: [facility], 185, cm, 06/24/22 10:48:00 EDT, Height/Length Dosing, 133.81, kg, 06/24/22 10:48:00 EDT, Weight Dosing Start Date: 09/16/22 Status: Ordered omeprazole 20 mg oral delayed release capsule See Instructions, TAKE ONE CAPSULE BY MOUTH EVERY DAY, # 90 cap, 1 Refill(s), Pharmacy: [facility], 185, cm, 06/24/22 10:48:00 EDT, Height/Length [...] EVERY DAY, # 90 cap, 3 Refill(s), Pharmacy:[facility], 185, cm, 06/24/22 10:48:00 EDT, Height/Length Dosing, 133.81, kg, 06/24/22 10:48:00 EDT, Weight Dosing Start Date: 10/05/22 Status: Ordered Ventolin HFA 90 mcg/inh inhalation aerosol 2 puffs, Inhale, every 4 hr, PRN as needed for wheezing, # 18 g, 2 Refill(s), Pharmacy: [facility], 185, cm, 06/24/22 10:48:00 EDT, Height/Length [...] Appendectomy Completed Results Laboratory List Name Date Urinalysis with Micro if Indicated and C ulture if Indicated 10/20/22 Most recent to oldest [Reference Range]: 1 UA Color Yellow (10/20/22 1:31 AM) UA Urobilinogen Normal (10/20/22 1:31 AM) UA Bili [Negative] Negative (10/20/22 1:31 AM) UA Ketones Negative (10/20/22 1:31 AM) UA Leuk Est Negative (10/20/22 1:31 AM) UA Nitrite Negative (10/20/22 1:31 AM) UA Glucose [Negative] Negative (10/20/22 1:31 AM) UA Protein Negative (10/20/22 1:31 AM) UA Blood Negative (10/20/22 1:31 AM) UA Spec Grav <=1.005 *NA* (10/20/22 1:31 AM) UA pH 5.0 *NA* (10/20/22 1:31 AM) UA Appear Clear (10/20/22 1:31 AM) Vital Signs Most recent to oldest [Reference Range]: 1 Temperature Temporal Artery [36-38 Deg C ] 35.8 Deg C *LOW* (10/20/22 12:54 AM) Peripheral Pulse Rate [60-100 bpm] 82 bp m (10/20/22 12:54 AM) Respiratory Rate [12-24 br/min] 18 br/mi n (10/20/22 12:54 AM) Blood Pressure [90-140/60-90 mmHg] 157/9 3mmHg *HI* (10/20/22 12:54 AM) Weight 147.95 kg (10/20/22 12:54 AM) Weight Dosing 147.95 kg (10/20/22 1:05 AM) Height 185.450 cm (10/20/22 12:54 AM) Height/Length Dosing 185.450 cm (10/20/22 1:05 AM) Body Mass Index 43.000 kg/m2 (10/20/22 12:54 AM) Social History Social History Type Response Tobacco Current everyday tob acco user Tobacco Use:. 1 1/2 pk daily per day. Sex Male Hospital Discharge Instructions Patient Education 10/20/2022 01:12:31 Back Exercises Back Exercises The following exercises strengthen the muscles that help to support the trunk (torso) and back. They also help to keep the lower back flexible. Doing these exercises can help to prevent or lessen existing low back pain. ??? If you have back pain or discomfort, try doing these exercises 2???3 times each day or as told by your health care provider. ??? As your pain improves, do them once each day, but increase the number of times that you repeat the steps for each exercise (do more repetitions). ??? To prevent the recurrence of back pain, continue to do these exercises once each day or as toldby your health care provider. Do exercises exactly as told by your health care provider and adjust them as directed. It is normalto feel mild stretching, pulling, tightness, or discomfort as you do these exercises, but you should stop right away if you feel sudden pain or your pain gets worse. Exercises Single knee to chest Repeat these steps 3???5 times for each le. Lie on your back on a firm bed or the floor with your legs extended. 2. Bring one knee to your chest. Your other leg should stay extended and in contact with the floor. 3. Hold your knee in place by grabbing your knee or thigh with both hands and hold. 4. Pull on your knee until you feel a gentle stretch in your lower back or buttocks. 5. Hold the stretch for 10???30 seconds. 6. Slowly release and straighten your leg. Pelvic tilt Repeat these steps 5???10 times: 1. Lie on your back on a firm bed or the floor with your legs extended. 2. Bend your knees so they are pointing toward the ceiling and your feet are flat on the floor. 3. Tighten your lower abdominal muscles to press your lower back against the floor. This motion will tilt your pelvis so your tailbone points up toward the ceiling instead of pointing to your feet orthe floor. 4. With gentle tension and even breathing, hold this position for 5???10 seconds. Cat-cow Repeat these steps until your lower back becomes more flexible: 1. Get into a [id number] position on a firm bed or the floor. Keep your hands under your shoulders, and keep your knees under your hips. You may place padding under your knees for comfort. 2. Let your head hang down toward your chest. Contract your abdominal muscles and point your tailbone toward the floor so your lower back becomes rounded like the back of a cat. 3. Hold this position for 5 seconds. 4. Slowly lift your head, let your abdominal muscles relax, and point your tailbone up toward the ceiling so your back forms a sagging arch like the back of a cow. 5. Hold this position for 5 seconds. Press-ups Repeat these steps 5???10 times: 1. Lie on your abdomen (face-down) on a firm bed or the floor. 2. Place your palms near your head, about shoulder-width apart. 3. Keeping your back as relaxed as possible and keeping your hips on the floor, slowly straighten your arms to raise the top half of your body and lift your shoulders. Do not use your back muscles toraise your upper torso. You may adjust the placement of your hands to make yourself more comfortable. 4. Hold this position for 5 seconds while you keep your back relaxed. 5. Slowly return to lying flat on the floor. Bridges Repeat these steps 10 times: 1. Lie on your back on a firm bed or the floor. 2. Bend your knees so they are pointing toward the ceiling and your feet are flat on the floor. Your arms should be flat at your sides, next to your body. 3. Tighten your buttocks muscles and lift your buttocks off the floor until your waist is at almostthe same height as your knees. You should feel the muscles working in your buttocks and the back ofyour thighs. If you do not feel these muscles, slide your feet 1???2 inches (2.5???5 cm) farther away from your buttocks. 4. Hold this position for 3???5 seconds. 5. Slowly lower your hips to the starting position, and allow your buttocks muscles to relax completely. If this exercise is too easy, try doing it with your arms crossed over your chest. Abdominal crunches Repeat these steps 5???10 times: 1. Lie on your back on a firm bed or the floor with your legs extended. 2. Bend your knees so they are pointing toward the ceiling and your feet are flat on the floor. 3. Cross your arms over your chest. 4. Tip your chin slightly toward your chest without bending your neck. 5. Tighten your abdominal muscles and slowly raise your torso high enough to lift your shoulder blades a tiny bit off the floor. Avoid raising your torso higher than that because it can put too much stress on your lower back and does not help to strengthen your abdominal muscles. 6. Slowly return to your starting position. Back lifts Repeat these steps 5???10 times: 1. Lie on your abdomen (face-down) with your arms at your sides, and rest your forehead on the floor. 2. Tighten the muscles in your legs and your buttocks. 3. Slowly lift your chest off the floor while you keep your hips pressed to the floor. Keep the back of your head in line with the curve in your back. Your eyes should be looking at the floor. 4. Hold this position for 3???5 seconds. 5. Slowly return to your starting position. Contact a health care provider if: ??? Your back pain or discomfort gets much worse when you do an exercise. ??? Your worsening back pain or discomfort does not lessen within 2 hours after you exercise. If you have any of these problems, stop doing these exercises right away. Do not do them again unless your health care provider says that you can. Get help right away if: ??? You develop sudden, severe back pain. If this happens, stop doing the exercises right away. Do not do them again unless your health care provider says that you can. This information is not intended to replace advice given to you by your health care provider. Make sure you discuss any questions you have with your health care provider. Document Revised: 12/15/2021 Document Reviewed: 12/15/2021 [employer] Patient Education ?? 2021 [employer]. Follow Up Care 10/20/2022 00:54:12 With:Ray Bowen NP Address: When:1 week Emergency department Discharge instructions * Winston Zepeda MD: PERFORM Event Display: ED Discharge Information Authored Date: [id number] YVETTE BOOKER :1965 Age:57 years Sex:Male Visit Date:10/20/2022 Primary Care Physician: Ray Bowen NP Discharge Instructions We would like to thank you for allowing us to assist you with your healthcare needs. The following includes patient education materials and information regarding your injury/illness. Diagnosis from Today's Visit Lumbar back pain with radiculopathy affecting right lower extremity Discharge Vitals Temperature??(Temporal Artery) 96.4 ??F (35.8 ??C) Heart Rate??(Peripheral) 82 Respiratory Rate?? 18 Blood Pressure?? 157/93?? Height?? 73.01 in (185.450 cm) Weight?? 326.23 lb (147.95 kg) BMI?? 43.000 Allergies doxycycline amitriptyline??(Dizziness) buPROPion What to Do Next Instructions from Your Care Team Thank you for coming to the emergency department today, it has been a pleasure to take care of you.??We reviewed your recent CT scan??which did not show??a kidney stone.?? Your urine study today didnot show any blood or signs of urine infection.?? With the pain on the right side of your lower back extending into your right leg, we suspect this may be??more lumbar spine pain.?? Please continue taking the meloxicam that you are prescribed and you may also use the cyclobenzaprine/Flexeril??to help. ??Remember that this can make you drowsy so please avoid any tasks or activities that could be dangerous??if you were sleepy or not??mentally sharp.?? Please return to the emergency department if you have any new or concerning symptoms??including any new or worsening pain, new numbness, tingling, weakness,??leaking of urine or stool or difficulty urinating/moving her bowels,??fever, abdominal pain, or if you have any other symptoms or concerns. You Need to Schedule the Following Appointments Follow Up with??Ray Bowen NP When:??Within 1 week Upcoming Scheduled Appointments Monday 10:00 AM EST ?? You were treated today on an emergency basis; it may be garnica to contact your primary care provider to notify them of your visit today. You may have been referred to your regular doctor or a specialist, please follow up as instructed. If your condition worsens or you can't get in to see the doctor, contact the Emergency Department. Medications What How Much When Why Instructions Next Dose New cyclobenzaprine (cyclobenzaprine 5 mg oral tablet) 1 tab Oral (given by mouth) 3 times a day Lumbar back pain with radiculopathy affecting right lower extremity Duration: 10 Days Pickup at [facility] Unchanged albuterol (Ventolin HFA 90 mcg/ inh inhalation aerosol) 2 Puffs Inhale (breathe in) Every 4 hours as needed for as needed for wheezing Chronic obstructive lung disease Unchanged cetirizine (cetirizine 10 mg oral tablet) 1 tab Oral (given by mouth) Every day Acute sinusitis Take one tab daily. ?? Unchanged doxycycline (doxycycline hyclate 100 mg oral capsule) 1 Capsules Oral (given by mouth) 2 times a day Acute sinusitis Duration: 10 Days Unchanged fluticasone nasal (fluticasone 27.5 mcg/ inh nasal spray) 2 Sprays Nasal (into the nose) Every day as needed for as needed for allergy symptoms Acute sinusitis Unchanged lisinopril (lisinopril 2.5 mg oral tablet) 1 tab Oral (given by mouth) Every day Unchanged meloxicam (meloxicam 15 mg oral tablet) 1 tab Oral (given by mouth) Every day Take with food, DON NOT TAKE WITH OTHER NSAID's ?? Unchanged omeprazole (omeprazole 20 mg oral delayed release capsule) See instructions TAKE ONE CAPSULE BY MOUTH EVERY DAY ?? Unchanged simvastatin (simvastatin 20 mg oral tablet) 1 tab Oral (given by mouth) Every night at bedtime Unchanged tamsulosin (tamsulosin 0.4 mg oral capsule) 1 Capsules Oral (given by mouth) Every day TAKE TWO CAPSULES BY MOUTH EVERY DAY ?? Pharmacy Information [facility]: [address], [place] [phone] Education Materials Back Exercises The following exercises strengthen the muscles that help to support the trunk (torso) and back. They also help to keep the lower back flexible. Doing these exercises can help to prevent or lessen existing low back pain. ? If you have back pain or discomfort, try doing these exercises 2???3 times each day or as told by your health care provider. ? As your pain improves, do them once each day, but increase the number of times that you repeat the steps for each exercise (do more repetitions). ? To prevent the recurrence of back pain, continue to do these exercises once each day or as told by your health care provider. Do exercises exactly as told by your health care provider and adjust them as directed. It is normalto feel mild stretching, pulling, tightness, or discomfort as you do these exercises, but you should stop right away if you feel sudden pain or your pain gets worse. Exercises Single knee to chest Repeat these steps 3???5 times for each le.?? Lie on your back on a firm bed or the floor with your legs extended. 2.?? Bring one knee to your chest. Your other leg should stay extended and in contact with the floor. 3.?? Hold your knee in place by grabbing your knee or thigh with both hands and hold. 4.?? Pull on your knee until you feel a gentle stretch in your lower back or buttocks. 5.?? Hold the stretch for 10???30 seconds. 6.?? Slowly release and straighten your leg. Pelvic tilt Repeat these steps 5???10 times: 1.?? Lie on your back on a firm bed or the floor with your legs extended. 2.?? Bend your knees so they are pointing toward the ceiling and your feet are flat on the floor. 3.?? Tighten your lower abdominal muscles to press your lower back against the floor. This motion will tilt your pelvis so your tailbone points up toward the ceiling instead of pointing to your feet or the floor. 4.?? With gentle tension and even breathing, hold this position for 5???10 seconds. Cat-cow Repeat these steps until your lower back becomes more flexible: 1.?? Get into a [id number] position on a firm bed or the floor. Keep your hands under your shoulders, and keep your knees under your hips. You may place padding under your knees for comfort. 2.?? Let your head hang down toward your chest. Contract your abdominal muscles and point your tailbone toward the floor so your lower back becomes rounded like the back of a cat. 3.?? Hold this position for 5 seconds. 4.?? Slowly lift your head, let your abdominal muscles relax, and point your tailbone up toward the ceiling so your back forms a sagging arch like the back of a cow. 5.?? Hold this position for 5 seconds. Press-ups Repeat these steps 5???10 times: 1.?? Lie on your abdomen (face-down) on a firm bed or the floor. 2.?? Place your palms near your head, about shoulder-width apart. 3.?? Keeping your back as relaxed as possible and keeping your hips on the floor, slowly straighten yourarms to raise the top half of your body and lift your shoulders. Do not use your back muscles to raise your upper torso. You may adjust the placement of your hands to make yourself more comfortable. 4.?? Hold this position for 5 seconds while you keep your back relaxed. 5.?? Slowly return to lying flat on the floor. Bridges Repeat these steps 10 times: 1.?? Lie on your back on a firm bed or the floor. 2.?? Bend your knees so they are pointing toward the ceiling and your feet are flat on the floor. Your arms should be flat at your sides, next to your body. 3.?? Tighten your buttocks muscles and lift your buttocks off the floor until your waist is at almost the same height as your knees. You should feel the muscles working in your buttocks and the back of your thighs. If you do not feel these muscles, slide your feet 1???2 inches (2.5???5 cm) farther away from your buttocks. 4.?? Hold this position for 3???5 seconds. 5.?? Slowly lower your hips to the starting position, and allow your buttocks muscles to relax completely. If this exercise is too easy, try doing it with your arms crossed over your chest. Abdominal crunches Repeat these steps 5???10 times: 1.?? Lie on your back on a firm bed or the floor with your legs extended. 2.?? Bend your knees so they are pointing toward the ceiling and your feet are flat on the floor. 3.?? Cross your arms over your chest. 4.?? Tip your chin slightly toward your chest without bending your neck. 5.?? Tighten your abdominal muscles and slowly raise your torso high enough to lift your shoulder bladesa tiny bit off the floor. Avoid raising your torso higher than that because it can put too much stress on your lower back and does not help to strengthen your abdominal muscles. 6.?? Slowly return to your starting position. Back lifts Repeat these steps 5???10 times: 1.?? Lie on your abdomen (face-down) with your arms at your sides, and rest your forehead on the floor. 2.?? Tighten the muscles in your legs and your buttocks. 3.?? Slowly lift your chest off the floor while you keep your hips pressed to the floor. Keep the back of your head in line with the curve in your back. Your eyes should be looking at the floor. 4.?? Hold this position for 3???5 seconds. 5.?? Slowly return to your starting position. Contact a health care provider if: ? Your back pain or discomfort gets much worse when you do an exercise. ? Your worsening back pain or discomfort does not lessen within 2 hours after you exercise. If you have any of these problems, stop doing these exercises right away. Do not do them again unless your health care provider says that you can. Get help right away if: ? You develop sudden, severe back pain. If this happens, stop doing the exercises right away. Do not do them again unless your health care provider says that you can. This information is not intended to replace advice given to you by your health care provider. Make sure you discuss any questions you have with your health care provider. Document Revised: 12/15/2021 Document Reviewed: 12/15/2021 [employer] Patient Education ?? 2021 [employer] Tests Performed Lab Test Name Test Result Date/Time UA Color YELLOW. 10/20/2022 01:31 EST UA Appear CLEAR. 10/20/2022 01:31 EST UA Glucose NEGATIVE 10/20/2022 01:31 EST UA Bili NEGATIVE 10/20/2022 01:31 EST UA Ketones NEGATIVE 10/20/2022 01:31 EST UA Spec Grav <=1.005 10/20/2022 01:31 EST UA Blood NEGATIVE 10/20/2022 01:31 EST UA pH 5.0 10/20/2022 01:31 EST UA Protein NEGATIVE 10/20/2022 01:31 EST UA Urobilinogen 0.2 Uro 10/20/2022 01:31 EST UA Nitrite NEGATIVE 10/20/2022 01:31 EST UA Leuk Est NEGATIVE 10/20/2022 01:31 EST Patient/Computer Systems Architect Signature Patient Name:YVETTE BOOKER I have received this information and my questions have been answered. Patient/Computer Systems Architect Name: Patient/Computer Systems Architect Signature: Relationship to Patient: Witness Name/Signature: Date: Electronically Signed on: 10/20/2022 02:15 ESTSigned by:AMISHA Discharge summary * Taisha Theodore: PERFORM Event Display: Discharge Note Authored Date: * Taisha Theodore: PERFORM Event Display: Discharge Note Authored Date: Diagnosis: 1. Lumbar back pain with radiculopathy affecting right lower extremity Comment: Diagnosis: Back pain Comment: Electronically Signed on 10/20/22 05:56 AM Taisha Theodore Patient Care team information Personnel Name: Ray Bowen NP
--- OUTSIDE RECORDS SUMMARY | 2024-04-24 14:11 | XMS_ITS | Continuity of Care Document ---
Author Name Unknown Organization [facility] Address [address] [place] [address] Care Team Providers Care Supervisor Patching Name Role Phone Ray Rivers Primary Care Physician [facility] - 11/17/23 [facility] [address] [place] [address] Encounter Diagnosis Pain of left heel(Discharge Diagnosis) - 11/17/23 Discharge Disposition: Home or Self Care Attending Physician: Ray Rivers NP Admitting Physician: Ray Rivers NP Referring Physician: Ray Rivers CLINICAL SERVICES MANAGER Allergies, Adverse Reactions, Alerts Substance Reaction Severity Status doxycycline Mild Active amitriptyline 1 Dizziness Unknown Active buPROPion Unknown Active 1%22out of it%22 all the time-hard time waking up. very fatigued-i Immunizations Given and Recorded Vaccine Date Status [...] virus vaccine, inactivated 09/29/09 Freddie rded Medications 28G lancets 28G lancets, Check blood sugar fasting daily., Supply, See instructions, # 100 EA, 3 Refill(s), Pharmacy: [facility] Start Date: 06/02/23 Status: Ordered cyclobenzaprine 5 mg oral tablet 5 mg = 1 tab, Oral, TID, # 30 tab, 0 Refill(s), Pharmacy: [facility], 185.45, cm, 10/20/22 1:05:00 EST, Height/Length Dosing, 147.95, kg, 10/20/22 1:05:00 EST, Weight Dosing Start Date: 10/20/22 Stop Date: 10/30/22 Status: Ordered Glucometer Glucometer, Check blood sugar fasting daily., Supply, See instructions, # 1 EA, 0 Refill(s), Pharmacy: [facility] Start Date: 06/02/23 Status: Ordered ibuprofen 600 mg oral tablet 600 mg = 1 tab, Oral, every 8 hr, # 270 tab, 1 Refill(s), Pharmacy: [facility]58, 185, cm, 03/02/23 9:48:00 EDT, Height/Length Dosing, 136.08, kg, 03/02/23 9:48:00 EDT, Weight Dosing Start Date: 05/31/23 Status: Ordered Jardiance 10 mg oral tablet 10 mg = 1 tab, Oral, every morning, # 30 tab, 0 Refill(s), Pharmacy: [facility], 185, cm,03/02/23 9:48:00 EDT, Height/Length Dosing, 136.08, kg, 03/02/23 9:48:00 EDT, Weight Dosing Start Date: 08/04/23 Status: Ordered lisinopril 2.5 mg oral tablet 1 tab, Oral, Daily, # 90 tab, 3 Refill(s), Pharmacy: [facility]58, 185, cm, 10/12/23 16:26:00 EST, Height, 138.55, kg, 09/05/23 9:58:00 EST, Weight Dosing Start Date: 11/08/23 Status: Ordered omeprazole 20 mg oral delayed release capsule See Instructions, TAKE ONE CAPSULE BY MOUTH EVERY DAY, # 90 cap, 3 Refill(s), Pharmacy: [facility]58, 185.45, cm, 10/20/22 1:05:00 EST, Height/Length Dosing, 147.95, kg, 10/20/22 1:05:00 EST,Weight Dosing Start Date: 01/04/23 Status: Ordered One Touch Test Strips One Touch Test Strips, Check blood sugar fasting daily., Supply, See instructions, # 100 EA, 3 Refill(s), Pharmacy: [facility] Start Date: 06/02/23 Status: Ordered phentermine 15 mg oral capsule 15 mg = 1 cap, Oral, every morning, # 30 cap, 1 Refill(s), Pharmacy: [facility], 185, cm,08/15/23 0:56:00 EDT, Height, 138.55, kg, 09/05/23 9:58:00 EST, Weight Dosing Start Date: 09/05/23 Status: Ordered predniSONE 20 mg oral tablet 60 mg = 3 tab, Oral, Daily, # 12 tab, 0 Refill(s), Pharmacy: [facility], 185, cm, 03/02/23 9:48:00 EDT, Height/Length Dosing, 136.08, kg, 03/02/23 9:48:00 EDT, Weight Dosing Start Date: 05/02/23 Stop Date: 05/06/23 Status: Ordered simvastatin 20 mg oral tablet 20 mg = 1 tab, Oral, every night at bedtime, # 90 tab, 3 Refill(s), Pharmacy: [facility]58,185.45, cm, 10/20/22 1:05:00 EST, Height/Length Dosing, 147.95, kg, 10/20/22 1:05:00 EST, Weight Dosing Start Date: 01/04/23 Status: Ordered tamsulosin 0.4 mg oral capsule 0.4 mg = 1 cap, Oral, Daily, TAKE TWO CAPSULES BY MOUTH EVERY DAY, # 90 cap, 3 Refill(s), Pharmacy:[facility]58, 185, cm, 08/15/23 0:56:00 EDT, Height, 138.55, kg, 09/05/23 9:58:00 EST, Weight Dosing Start Date: 09/05/23 Status: Ordered terbinafine 250 mg oral tablet 250 mg = 1 tab, Oral, Daily, # 42 tab, 0 Refill(s), Pharmacy: [facility], 185, cm, 03/02/23 9:48:00 EDT, Height/Length Dosing, 136.08, kg, 03/02/23 9:48:00 EDT, Weight Dosing Start Date: 05/02/23 Stop Date: 06/13/23 Status: Ordered traMADol 50 mg oral tablet 50 mg = 1 tab, Oral, Daily, # 30 tab, 0 Refill(s), Pharmacy: [facility], 185, cm, 03/02/23 9:48:00 EDT, Height/Length Dosing, 136.08, kg, 03/02/23 9:48:00 EDT, Weight Dosing Start Date: 05/05/23 Status: Ordered Ventolin HFA 90 mcg/inh inhalation aerosol 2 puffs, Inhale, every 4 hr, PRN as needed for wheezing, # 18 g, 2 Refill(s), Pharmacy: [facility], 185, cm, 06/24/22 10:48:00 EDT, Height/Length [...] Related Diagnosis Body Site Status Appendectomy Completed Exploratory laparotomy Co mpleted shoulder surgery 1 Comple tosin 1bilateral Social History Social History Type Response Tobacco Current everyday tob acco user Tobacco Use:. Down from a pack and a half to a pack now. per day. Sex Male Patient Care team information Care Team Personnel Name: Jane Salas Position: Ambulatory - RN/TEACHER HEARING IMPAIRED (Ankush) Member Role: Enterprise Engineer Name: Ray Rivers NP Position: Physician Member Role: Informed Provider Address: Address: [address] [place] [address] [place] [address] [place] Care Team Related Persons Name: LOYDA BENZ
--- OUTSIDE RECORDS SUMMARY | 2024-04-24 14:11 | XMS_ITS | Continuity of Care Document ---
Author Name Unknown Organization [facility] Address [address] [place] [address] Care Team Providers Care Water Sander Name Role Phone Ray Bowen Primary Care Physician [facility] Date(s): 05/23/23 - 05/23/23 [facility] [address] [place] [address] Discharge Disposition: Home or Self Care Attending Physician: Ray Bowen NP Admitting Physician: Ray Bowen ASBESTOS PIPE SUPERVISOR Referring Physician: Ray Bowen ASBESTOS PIPE SUPERVISOR Allergies, Adverse Reactions, Alerts Substance Reaction Severity [...] virus vaccine, inactivated 09/29/09 Freddie rded Medications cyclobenzaprine 5 mg oral tablet 5 mg = 1 tab, Oral, TID, # 30 tab, 0 Refill(s), Pharmacy: [facility] #58, 185.45, cm, 10/20/22 1:05:00 EST, Height/Length Dosing, 147.95, kg, 10/20/22 1:05:00 EST, Weight Dosing Start Date: 10/20/22 Stop Date: 10/30/22 Status: Ordered ibuprofen 600 mg oral tablet 600 mg = 1 tab, Oral, every 8 hr, # 30 tab, 0 Refill(s), Pharmacy: [facility] #58, 185, cm, 03/02/23 9:48:00 EDT, Height/Length Dosing, 136.08, kg, 03/02/23 9:48:00 EDT, Weight Dosing Start Date: 05/02/23 Status: Ordered lisinopril 2.5 mg oral tablet 2.5 mg = 1 tab, Oral, Daily, # 90 tab, 3 Refill(s), Pharmacy: [facility] #58, 185, cm, 06/24/22 10:48:00 EDT, Height/Length Dosing, 133.81, kg, 06/24/22 10:48:00 EDT, Weight Dosing Start Date: 09/25/22 Status: Ordered meloxicam 15 mg oral tablet 15 mg = 1 tab, Oral, Daily, Take with food, DO NOT TAKE WITH OTHER NSAID's, # 30 tab, 1 Refill(s), Pharmacy: [facility] #58, 185.45, cm, 10/20/22 1:05:00 EST, Height/Length Dosing, 147.95, kg, 10/20/22 1:05:00 EST, Weight Dosing Start Date: 11/22/22 Status: Ordered omeprazole 20 mg oral delayed release capsule See Instructions, TAKE ONE CAPSULE BY MOUTH EVERY DAY, # 90 cap, 3 Refill(s), Pharmacy: [facility] #58, 185.45, cm, 10/20/22 1:05:00 EST, Height/Length Dosing, 147.95, kg, 10/20/22 1:05:00 EST,Weight Dosing Start Date: 01/04/23 Status: Ordered predniSONE 20 mg oral tablet 60 mg = 3 tab, Oral, Daily, # 12 tab, 0 Refill(s), Pharmacy: [facility] #58, 185, cm, 03/02/23 9:48:00 EDT, Height/Length Dosing, 136.08, kg, 03/02/23 9:48:00 EDT, Weight Dosing Start Date: 05/02/23 Stop Date: 05/06/23 Status: Ordered simvastatin 20 mg oral tablet 20 mg = 1 tab, Oral, every night at bedtime, # 90 tab, 3 Refill(s), Pharmacy: [facility] #58,185.45, cm, 10/20/22 1:05:00 EST, Height/Length Dosing, 147.95, kg, 10/20/22 1:05:00 EST, Weight Dosing Start Date: 01/04/23 Status: Ordered tamsulosin 0.4 mg oral capsule 0.4 mg = 1 cap, Oral, Daily, TAKE TWO CAPSULES BY MOUTH EVERY DAY, # 90 cap, 3 Refill(s), Pharmacy:[facility] #58, 185.45, cm, 10/20/22 1:05:00 EST, Height/Length Dosing, 147.95, kg, 10/20/22 1:05:00 EST, Weight Dosing Start Date: 02/27/23 Status: Ordered terbinafine 250 mg oral tablet 250 mg = 1 tab, Oral, Daily, # 42 tab, 0 Refill(s), Pharmacy: [facility] #58, 185, cm, 03/02/23 9:48:00 EDT, Height/Length Dosing, 136.08, kg, 03/02/23 9:48:00 EDT, Weight Dosing Start Date: 05/02/23 Stop Date: 06/13/23 Status: Ordered traMADol 50 mg oral tablet 50 mg = 1 tab, Oral, Daily, # 30 tab, 0 Refill(s), Pharmacy: [facility] #58, 185, cm, 03/02/23 9:48:00 EDT, Height/Length Dosing, 136.08, kg, 03/02/23 9:48:00 EDT, Weight Dosing Start Date: 05/05/23 Status: Ordered Ventolin HFA 90 mcg/inh inhalation aerosol 2 puffs, Inhale, every 4 hr, PRN as needed for wheezing, # 18 g, 2 Refill(s), Pharmacy: [facility] #58, 185, cm, 06/24/22 10:48:00 EDT, Height/Length [...] mpleted shoulder surgery 1 Comple tosin 1bilateral Results Laboratory List Name Date Glucose Level 05/23/23 Most recent to oldest [Reference Range]: 1 Glucose Level [74-106 mg/dL] 132 mg/dL *HI* (05/23/23 7:15 AM) Social History Social History Type Response Tobacco Current everyday tob acco user Tobacco Use:. Down from a pack and a half to a pack now. per day. Sex Male Patient Care team information Care Team Personnel Name: Ray Bowen NP Position: Physician Member Role: Informed Provider Care Team Related Persons Name: LOYDA BENZ
--- OUTSIDE RECORDS SUMMARY | 2024-04-24 14:11 | XMS_ITS | Continuity of Care Document ---
Author Name Unknown Organization [facility] Address [address] [place] [address] Care Team Providers Care Mandrel Maker Name Role Phone Ray Bowen Primary Care Physician [facility] Date[facility] 05/28/23 - 05/28/23 [facility] [address] [place] [address] Discharge Disposition: Home or Self Care Attending Physician: Ray Bowen NP Admitting Physician: Ray Bowen ADMISSIONS MANAGER RN Referring Physician: Ray Bowen ADMISSIONS MANAGER RN Allergies, Adverse Reactions, Alerts Substance Reaction Severity [...] TID, # 30 tab, 0 Refill(s), Pharmacy: [facility] #58, 185.45, cm, 10/20/22 1:05:00 EST, Height/Length Dosing, 147.95, kg, 10/20/22 1:05:00 EST, Weight Dosing Start Date: 10/20/22 Stop Date: 10/30/22 Status: Ordered ibuprofen 600 mg oral tablet 600 mg = 1 tab, Oral, every 8 hr, # 30 tab, 0 Refill(s), Pharmacy: [facility] #58, 185, cm, 03/02/23 9:48:00 EDT, Height/Length Dosing, 136.08, kg, 03/02/23 9:48:00 EDT, Weight Dosing Start Date: 05/02/23 Status: Ordered lisinopril 2.5 mg oral tablet 2.5 mg = 1 tab, Oral, Daily, # 90 tab, 3 Refill(s), Pharmacy: [facility] #58, 185, cm, 06/24/22 10:48:00 EDT, Height/Length Dosing, 133.81, kg, 06/24/22 10:48:00 EDT, Weight Dosing Start Date: 09/25/22 Status: Ordered meloxicam 15 mg oral tablet 15 mg = 1 tab, Oral, Daily, Take with food, DO NOT TAKE WITH OTHER NSAID's, # 30 tab, 1 Refill(s), Pharmacy: [facility]58, 185.45, cm, 10/20/22 1:05:00 EST, Height/Length Dosing, 147.95, kg, 10/20/22 1:05:00 EST, Weight Dosing Start Date: 11/22/22 Status: Ordered omeprazole 20 mg oral delayed release capsule See Instructions, TAKE ONE CAPSULE BY MOUTH EVERY DAY, # 90 cap, 3 Refill(s), Pharmacy: [facility]58, 185.45, cm, 10/20/22 1:05:00 EST, Height/Length Dosing, 147.95, kg, 10/20/22 1:05:00 EST,Weight Dosing Start Date: 01/04/23 Status: Ordered predniSONE 20 mg oral tablet 60 mg = 3 tab, Oral, Daily, # 12 tab, 0 Refill(s), Pharmacy: [facility]58, 185, cm, 03/02/23 9:48:00 EDT, Height/Length Dosing, 136.08, kg, 03/02/23 9:48:00 EDT, Weight Dosing Start Date: 05/02/23 Stop Date: 05/06/23 Status: Ordered simvastatin 20 mg oral tablet 20 mg = 1 tab, Oral, every night at bedtime, # 90 tab, 3 Refill(s), Pharmacy: [facility] #58,185.45, cm, 10/20/22 1:05:00 EST, Height/Length Dosing, 147.95, kg, 10/20/22 1:05:00 EST, Weight Dosing Start Date: 01/04/23 Status: Ordered tamsulosin 0.4 mg oral capsule 0.4 mg = 1 cap, Oral, Daily, TAKE TWO CAPSULES BY MOUTH EVERY DAY, # 90 cap, 3 Refill(s), Pharmacy:[facility] #58, 185.45, cm, 10/20/22 1:05:00 EST, Height/Length Dosing, 147.95, kg, 10/20/22 1:05:00 EST, Weight Dosing Start Date: 02/27/23 Status: Ordered terbinafine 250 mg oral tablet 250 mg = 1 tab, Oral, Daily, # 42 tab, 0 Refill(s), Pharmacy: [facility]58, 185, cm, 03/02/23 9:48:00 EDT, Height/Length Dosing, 136.08, kg, 03/02/23 9:48:00 EDT, Weight Dosing Start Date: 05/02/23 Stop Date: 06/13/23 Status: Ordered traMADol 50 mg oral tablet 50 mg = 1 tab, Oral, Daily, # 30 tab, 0 Refill(s), Pharmacy: [facility], 185, cm, 03/02/23 9:48:00 EDT, Height/Length Dosing, 136.08, kg, 03/02/23 9:48:00 EDT, Weight Dosing Start Date: 05/05/23 Status: Ordered Ventolin HFA 90 mcg/inh inhalation aerosol 2 puffs, Inhale, every 4 hr, PRN as needed for wheezing, # 18 g, 2 Refill(s), Pharmacy: [facility], 185, cm, 06/24/22 10:48:00 EDT, Height/Length [...] tosin 1bilateral Results Laboratory List Name Date Hemoglobin A1c 05/28/23 Most recent to oldest [Reference Range]: 1 Hemoglobin A1c [4.0-6.0 %] 6.3 % *HI* (05/28/23 8:02 AM) Social History Social History Type Response Tobacco Current everyday tob acco user Tobacco Use:. Down from a pack and a half to a pack now. per day. Sex Male Patient Care team information Care Team Personnel Name: Ray Bowen NP Position: Physician Member Role: Informed Provider Care Team Related Persons Name: LOYDA BENZ
--- OUTSIDE RECORDS SUMMARY | 2024-04-24 14:11 | XMS_ITS | Continuity of Care Document ---
Author Name Unknown Organization [facility] Address [address] [place] [address] Care Team Providers Care Portfolio Specialist Name Role Phone Ray Bowen Primary Care Physician [facility]counter [facility] Date(s): 05/02/23 - 05/02/[address] [address] Discharge Disposition: Home or Self Care Attending Physician: Ray Bowen NP Admitting Physician: Ray Bowen NP Referring Physician: Ray Bowen DATACAP DEVELOPER Allergies, Adverse Reactions, Alerts Substance Reaction Severity [...] TID, # 30 tab, 0 Refill(s), Pharmacy: [facility] #58, 185.45, cm, 10/20/22 1:05:00 EST, Height/Length Dosing, 147.95, kg, 10/20/22 1:05:00 EST, Weight Dosing Start Date: 10/20/22 Stop Date: 10/30/22 Status: Ordered ibuprofen 600 mg oral tablet 600 mg = 1 tab, Oral, every 8 hr, # 30 tab, 0 Refill(s), Pharmacy: [facility] #58, 185, cm, 03/02/23 9:48:00 EDT, Height/Length Dosing, 136.08, kg, 03/02/23 9:48:00 EDT, Weight Dosing Start Date: 05/02/23 Status: Ordered lisinopril 2.5 mg oral tablet 2.5 mg = 1 tab, Oral, Daily, # 90 tab, 3 Refill(s), Pharmacy: [facility] #58, 185, cm, 06/24/22 10:48:00 EDT, Height/Length Dosing, 133.81, kg, 06/24/22 10:48:00 EDT, Weight Dosing Start Date: 09/25/22 Status: Ordered meloxicam 15 mg oral tablet 15 mg = 1 tab, Oral, Daily, Take with food, DO NOT TAKE WITH OTHER NSAID's, # 30 tab, 1 Refill(s), Pharmacy: [facility] #58, 185.45, cm, 10/20/22 1:05:00 EST, Height/Length Dosing, 147.95, kg, 10/20/22 1:05:00 EST, Weight Dosing Start Date: 11/22/22 Status: Ordered omeprazole 20 mg oral delayed release capsule See Instructions, TAKE ONE CAPSULE BY MOUTH EVERY DAY, # 90 cap, 3 Refill(s), Pharmacy: [facility] #58, 185.45, cm, 10/20/22 1:05:00 EST, Height/Length Dosing, 147.95, kg, 10/20/22 1:05:00 EST,Weight Dosing Start Date: 01/04/23 Status: Ordered predniSONE 20 mg oral tablet 60 mg = 3 tab, Oral, Daily, # 12 tab, 0 Refill(s), Pharmacy: [facility] #58, 185, cm, 03/02/23 9:48:00 EDT, Height/Length Dosing, 136.08, kg, 03/02/23 9:48:00 EDT, Weight Dosing Start Date: 05/02/23 Stop Date: 05/06/23 Status: Ordered simvastatin 20 mg oral tablet 20 mg = 1 tab, Oral, every night at bedtime, # 90 tab, 3 Refill(s), Pharmacy: [facility] #58,185.45, cm, 10/20/22 1:05:00 EST, Height/Length Dosing, 147.95, kg, 10/20/22 1:05:00 EST, Weight Dosing Start Date: 01/04/23 Status: Ordered tamsulosin 0.4 mg oral capsule 0.4 mg = 1 cap, Oral, Daily, TAKE TWO CAPSULES BY MOUTH EVERY DAY, # 90 cap, 3 Refill(s), Pharmacy:[facility] #58, 185.45, cm, 10/20/22 1:05:00 EST, Height/Length Dosing, 147.95, kg, 10/20/22 1:05:00 EST, Weight Dosing Start Date: 02/27/23 Status: Ordered terbinafine 250 mg oral tablet 250 mg = 1 tab, Oral, Daily, # 42 tab, 0 Refill(s), Pharmacy: [facility] #58, 185, cm, 03/02/23 9:48:00 EDT, Height/Length Dosing, 136.08, kg, 03/02/23 9:48:00 EDT, Weight Dosing Start Date: 05/02/23 Stop Date: 06/13/23 Status: Ordered Ventolin HFA 90 mcg/inh inhalation aerosol 2 puffs, Inhale, every 4 hr, PRN as needed for wheezing, # 18 g, 2 Refill(s), Pharmacy: [facility] #58, 185, cm, 06/24/22 10:48:00 EDT, Height/Length [...] tosin 1bilateral Results Laboratory List Name Date CBC w/o Diff 05/02/23 Hemoglobin A1c 05/02/23 Most recent to oldest [Reference Range]: 1 WBC [5.0-10.0 x10^3/mcL] 12.4 x10^3/mcL *HI* (05/02/23 2:22 PM) RBC [4.6-6.0 x10^6/mcL] 5.4 x10^6/mcL (05/02/23 2:22 PM) MCV [80.0-96.0 fL] 87.5 fL (05/02/23 2:22 PM) MCHC [31.0-35.0 g/dL] 34.0 g/dL (05/02/23 2:22 PM) Hct [41.0-51.0 %] 47.0 % (05/02/23 2:22 PM) MCH [26.0-32.0 pg] 29.8 pg (05/02/23 2:22 PM) Hgb [14.0-18.0 g/dL] 16.0 g/dL (05/02/23 2:22 PM) Platelets [130-450 x10^3/mcL] 215 x10^3/ mcL (05/02/23 2:22 PM) Hemoglobin A1c [4.0-6.0 %] 5.9 % (05/02/23 2:22 PM) RDW-CV [11.5-14.5 %] 13.8 % (05/02/23 2:22 PM) Social History Social History Type Response Tobacco Current everyday tob acco user Tobacco Use:. Down from a pack and a half to a pack now. per day. Sex Male Patient Care team information Care Team Personnel Name: Ray Bowen NP Position: Physician Member Role: Informed Provider Care Team Related Persons Name: LOYDA BENZ
--- OUTSIDE RECORDS SUMMARY | 2024-04-24 14:11 | XMS_ITS | Continuity of Care Document ---
Author Name Unknown Organization [facility] Address [address] [place] [address] Care Team Providers Care Area Director Name Role Phone Ray Bowen Primary Care Physician Encounter [facility] Date(s): 05/30/23 - 05/30/23 [facility] [address] [place] [address] Discharge Disposition: Home Allergies, Adverse Reactions, Alerts Substance Reaction Severity [...] TID, # 30 tab, 0 Refill(s), Pharmacy: [facility] #58, 185.45, cm, 10/20/22 1:05:00 EST, Height/Length Dosing, 147.95, kg, 10/20/22 1:05:00 EST, Weight Dosing Start Date: 10/20/22 Stop Date: 10/30/22 Status: Ordered ibuprofen 600 mg oral tablet 600 mg = 1 tab, Oral, every 8 hr, # 30 tab, 0 Refill(s), Pharmacy: [facility] #58, 185, cm, 03/02/23 9:48:00 EDT, Height/Length Dosing, 136.08, kg, 03/02/23 9:48:00 EDT, Weight Dosing Start Date: 05/02/23 Status: Ordered lisinopril 2.5 mg oral tablet 2.5 mg = 1 tab, Oral, Daily, # 90 tab, 3 Refill(s), Pharmacy: [facility] #58, 185, cm, 06/24/22 10:48:00 EDT, Height/Length Dosing, 133.81, kg, 06/24/22 10:48:00 EDT, Weight Dosing Start Date: 09/25/22 Status: Ordered meloxicam 15 mg oral tablet 15 mg = 1 tab, Oral, Daily, Take with food, DO NOT TAKE WITH OTHER NSAID's, # 30 tab, 1 Refill(s), Pharmacy: [facility] #58, 185.45, cm, 10/20/22 1:05:00 EST, Height/Length Dosing, 147.95, kg, 10/20/22 1:05:00 EST, Weight Dosing Start Date: 11/22/22 Status: Ordered omeprazole 20 mg oral delayed release capsule See Instructions, TAKE ONE CAPSULE BY MOUTH EVERY DAY, # 90 cap, 3 Refill(s), Pharmacy: [facility] #58, 185.45, cm, 10/20/22 1:05:00 EST, Height/Length Dosing, 147.95, kg, 10/20/22 1:05:00 EST,Weight Dosing Start Date: 01/04/23 Status: Ordered predniSONE 20 mg oral tablet 60 mg = 3 tab, Oral, Daily, # 12 tab, 0 Refill(s), Pharmacy: [facility] #58, 185, cm, 03/02/23 9:48:00 EDT, Height/Length Dosing, 136.08, kg, 03/02/23 9:48:00 EDT, Weight Dosing Start Date: 05/02/23 Stop Date: 05/06/23 Status: Ordered simvastatin 20 mg oral tablet 20 mg = 1 tab, Oral, every night at bedtime, # 90 tab, 3 Refill(s), Pharmacy: [facility] #58,185.45, cm, 10/20/22 1:05:00 EST, Height/Length Dosing, 147.95, kg, 10/20/22 1:05:00 EST, Weight Dosing Start Date: 01/04/23 Status: Ordered tamsulosin 0.4 mg oral capsule 0.4 mg = 1 cap, Oral, Daily, TAKE TWO CAPSULES BY MOUTH EVERY DAY, # 90 cap, 3 Refill(s), Pharmacy:[facility] #58, 185.45, cm, 10/20/22 1:05:00 EST, Height/Length Dosing, 147.95, kg, 10/20/22 1:05:00 EST, Weight Dosing Start Date: 02/27/23 Status: Ordered terbinafine 250 mg oral tablet 250 mg = 1 tab, Oral, Daily, # 42 tab, 0 Refill(s), Pharmacy: [facility] #58, 185, cm, 03/02/23 9:48:00 EDT, Height/Length Dosing, 136.08, kg, 03/02/23 9:48:00 EDT, Weight Dosing Start Date: 05/02/23 Stop Date: 06/13/23 Status: Ordered traMADol 50 mg oral tablet 50 mg = 1 tab, Oral, Daily, # 30 tab, 0 Refill(s), Pharmacy: [facility] #58, 185, cm, 03/02/23 9:48:00 EDT, Height/Length Dosing, 136.08, kg, 03/02/23 9:48:00 EDT, Weight Dosing Start Date: 05/05/23 Status: Ordered Ventolin HFA 90 mcg/inh inhalation aerosol 2 puffs, Inhale, every 4 hr, PRN as needed for wheezing, # 18 g, 2 Refill(s), Pharmacy: [facility] #58, 185, cm, 06/24/22 10:48:00 EDT, Height/Length [...]
--- OUTSIDE RECORDS SUMMARY | 2024-04-24 14:11 | XMS_ITS | Continuity of Care Document ---
Author Name Unknown Organization [facility] Address [address] [place] [address] Care Team Providers Care Cfa Name Role Phone Ray Bowen Primary Care Physician Encounter [facility] Date(s): 03/02/23 - 03/02/[address] [address] Encounter Diagnosis Status post tooth extraction(Discharge Diagnosis) - 03/02/23 Discharge Disposition: Home or Self Care Attending Physician: Demario Llanos MD Admitting Physician: Demario Llanos MD Allergies, Adverse Reactions, Alerts Substance Reaction Severity Status doxycycline Mild Active amitriptyline 1 Dizziness Unknown Active buPROPion Unknown Active 1%22out of it%22 all the time-hard time waking up. very fatigued-i Assessment and Plan Future Appointments Functional Status 03/02/23 Family Member Travel History No recent t ravel Recent Travel History No recent travel Other [...] virus vaccine, inactivated 09/29/09 Freddie rded Medications !-Augmentin 875 mg-125 mg oral tablet 1 tab, Oral, every 12 hr, X 7 days, # 14 tab, 0 Refill(s), 03/09/23 10:12:00 EDT, Pharmacy: [id number], 185, cm, 03/02/23 9:48:00 EDT, Height/Length Dosing, 136.08, kg, 03/02/23 9:48:00 EDT, Weight Dosing Start Date: 03/02/23 Stop Date: 03/09/23 Status: Ordered cyclobenzaprine 5 mg oral tablet 5 mg = 1 tab, Oral, TID, # 30 tab, 0 Refill(s), Pharmacy: [facility], 185.45, cm, 10/20/22 1:05:00 EST, Height/Length Dosing, 147.95, kg, 10/20/22 1:05:00 EST, Weight Dosing Start Date: 10/20/22 Stop Date: 10/30/22 Status: Ordered ibuprofen 800 mg oral tablet 800 mg = 1 tab, Oral, every 8 hr, PRN pain, moderate, X 10 days, # 30 tab, 0 Refill(s), 03/12/23 10:13:00 EDT, Pharmacy: [facility], 185, cm, 03/02/23 9:48:00 EDT, Height/Length Dosing, 136.08, kg, 03/02/23 9:48:00 EDT, Weight Dosing Start Date: 03/02/23 Stop Date: 03/12/23 Status: Ordered lisinopril 2.5 mg oral tablet 2.5 mg = 1 tab, Oral, Daily, # 90 tab, 3 Refill(s), Pharmacy: [facility], 185, cm, 06/24/22 10:48:00 EDT, Height/Length Dosing, 133.81, kg, 06/24/22 10:48:00 EDT, Weight Dosing Start Date: 09/25/22 Status: Ordered meloxicam 15 mg oral tablet 15 mg = 1 tab, Oral, Daily, Take with food, DO NOT TAKE WITH OTHER NSAID's, # 30 tab, 1 Refill(s), Pharmacy: [facility], 185.45, cm, 10/20/22 1:05:00 EST, Height/Length Dosing, 147.95, kg, 10/20/22 1:05:00 EST, Weight Dosing Start Date: 11/22/22 Status: Ordered omeprazole 20 mg oral delayed release capsule See Instructions, TAKE ONE CAPSULE BY MOUTH EVERY DAY, # 90 cap, 3 Refill(s), Pharmacy: [facility], 185.45, cm, 10/20/22 1:05:00 EST, Height/Length Dosing, 147.95, kg, 10/20/22 1:05:00 EST,Weight Dosing Start Date: 01/04/23 Status: Ordered simvastatin 20 mg oral tablet 20 mg = 1 tab, Oral, every night at bedtime, # 90 tab, 3 Refill(s), Pharmacy: [facility],185.45, cm, 10/20/22 1:05:00 EST, Height/Length Dosing, 147.95, kg, 10/20/22 1:05:00 EST, Weight Dosing Start Date: 01/04/23 Status: Ordered tamsulosin 0.4 mg oral capsule 0.4 mg = 1 cap, Oral, Daily, TAKE TWO CAPSULES BY MOUTH EVERY DAY, # 90 cap, 3 Refill(s), Pharmacy:[facility], 185.45, cm, 10/20/22 1:05:00 EST, Height/Length Dosing, 147.95, kg, 10/20/22 1:05:00 EST, Weight Dosing Start Date: 02/27/23 Status: Ordered Ventolin HFA 90 mcg/inh inhalation aerosol 2 puffs, Inhale, every 4 hr, PRN as needed for wheezing, # 18 g, 2 Refill(s), Pharmacy: [facility], 185, cm, 06/24/22 10:48:00 EDT, Height/Length [...] mpleted shoulder surgery 1 Comple tosin 1bilateral Vital Signs Most recent to oldest [Reference Range]: 1 Temperature Temporal Artery [36-38 Deg C ] 35.3 Deg C *LOW* (03/02/23 9:42 AM) Peripheral Pulse Rate [60-100 bpm] 80 bp m (03/02/23 9:42 AM) Respiratory Rate [12-24 br/min] 18 br/mi n (03/02/23 9:42 AM) Blood Pressure [90-140/60-90 mmHg] 179/1 08mmHg *HI* (03/02/23 9:42 AM) Weight Dosing 136.08 kg (03/02/23 9:48 AM) Weight Estimated 136.08 kg (03/02/23 9:42 AM) Height/Length Dosing 185.000 cm (03/02/23 9:48 AM) Height/Length Estimated 185.000 cm (03/02/23 9:42 AM) Social History Social History Type Response Tobacco Current everyday tob acco user Tobacco Use:. Down from a pack and a half to a pack now. per day. Sex Male Hospital Discharge Instructions Patient Education 03/02/2023 09:15:30 Dental Pain, Vptd-rg-Gbru Dental Pain Dental pain is often a sign that something is wrong with your teeth or gums. You can also have painafter a dental treatment. If you have dental pain, it is important to contact your dentist, especially if the cause of the pain is not known. Dental pain may hurt a lot or a little and can be caused by many things, including: ??? Tooth decay (cavities or caries). ??? Infection. ??? The inner part of the tooth being filled with pus (an abscess). ??? Injury. ??? A crack in the tooth. ??? Gums that move back and expose the root of a tooth. ??? Gum disease. ??? Abnormal grinding or clenching of teeth. ??? Not taking good care of your teeth. Sometimes the cause of pain is not known. You may have pain all the time, or it may happen only when you are: ??? Chewing. ??? Exposed to hot or cold temperatures. ??? Eating or drinking foods or drinks that have a lot of sugar in them, such as soda or candy. Follow these instructions at home: Medicines ??? Take hloa-oih-vrnagez and prescription medicines only as told by your dentist. ??? If you were prescribed an antibiotic medicine, take it as told by your dentist. Do not stop taking it even if you start to feel better. Eating and drinking Do not eat foods or drinks that cause you pain. These include: ??? Very hot or very cold foods or drinks. ??? Sweet or sugary foods or drinks. Managing pain and swelling ??? If told, put ice on the painful area of your face. To do this: ??? Put ice in a plastic bag. ??? Place a towel between your skin and the bag. ??? Leave the ice on for 20 minutes, 2???3 times a day. ??? Take off the ice if your skin turns bright red. This is very important. If you cannot feel pain, heat, or cold, you have a greater risk of damage to the area. Brushing your teeth ??? [place] your teeth twice a day using a fluoride toothpaste. ??? Use a toothpaste made for sensitive teeth as told by your dentist. ??? Use a soft toothbrush. General instructions ??? Floss your teeth at least once a day. ??? Do not put heat on the outside of your face. ??? Rinse your mouth often with salt water. To make salt water, dissolve ?1 tsp (3???6 g) of salt in 1 cup (237 mL) of warm water. ??? Watch your dental pain. Let your dentist know if there are any changes. ??? Keep all follow-up visits. Contact a dentist if: ??? You have dental pain and you do not know why. ??? Medicine does not help your pain. ??? Your symptoms get worse. ??? You have new symptoms. Get help right away if: ??? You cannot open your mouth. ??? You are having trouble breathing or swallowing. ??? You have a fever. ??? Your face, neck, or jaw is swollen. These symptoms may be an emergency. Get help right away. Call your local emergency services (911 int [place] ??? Do not wait to see if the symptoms will go away. ??? Do not drive yourself to the hospital. Summary ??? Dental pain may be caused by many things, including tooth decay, injury, or infection. In some cases, the cause is not known. ??? Dental pain may hurt a lot or very little. You may have pain all the time, or you may have it only when you eat or drink. ??? Take pmch-sej-iiooreu and prescription medicines only as told by your dentist. ??? Watch your dental pain for any changes. Let your dentist know if symptoms get worse. This information is not intended to replace advice given to you by your health care provider. Make sure you discuss any questions you have with your health care provider. Document Revised: 07/07/2021 Document Reviewed: 07/07/2021 [employer] Patient Education ?? 2021 [employer] Follow Up Care 03/02/2023 09:42:38 With:dentist Address: When:2 to 4 days only if needed Physician Emergency department Note * Demario Llanos MD: PERFORM Event Display: ED Note Physician Authored Date: [id number] YVETTE BOOKER :1965 Age:57 years Sex:Male Visit Date:03/02/2023 Primary Care Physician: Ray Bowen NP Basic Information Time Seen: Demario Llanos MD / 03/02/2023 09:54 Chief Complaint I had a tooth extracted yesterday at [facility], my bottom left has stitches in it. When the novacaine wore off my jaw swelled. Ibuprofen BIZTALK ARCHITECT w/o relief. History Of Present Illness: 57-year-old male??presents ambulatory to the ER because of pain and swelling of the left lower mandible??area. ??Patient states he had a left lower molar tooth extracted at [facility] yesterday??and once the??Novocain wore off he developed some swelling and pain. ??He reports he took??500 mg of ibuprofen, he states he is sure its ibuprofen??and not acetaminophen??and is still hurts. ??He reports he tried to call his dentist and was told he would get a call back but has not heard from them.?? No reported difficulty swallowing??or breathing. Review of Systems: Per HPI Physical Exam Vitals & Measurements T:??35.3?C ??(Temporal Artery)?? HR:??80??(Peripheral)?? RR:??18?? BP:??179/108?? SpO2:??97%?? HT:??185.000??cm?? WT:??136.08??kg??(Estimated)?? Pain Score:??8?? O2 Therapy:??Room air?? General:??alert,??no acute distress. Skin:??warm,??dry. Head:??no??trauma,??normocephalic. Face: Some slight inflammation and tenderness along the horizontal branch of the mandible on the left side. ??The floor of the mouth is unremarkable. Neck:??trachea??midline,??no??adenopathy,??no??tenderness. Eye:??normal??conjunctiva, sclera??clear. Nose: Normal Mouth:??Tongue is unremarkable, no Rene angina,??he has some missing teeth, he has signs of a recent extracted tooth on the left lower side molar tooth,??slight inflammation noted.?? No purulent discharge. ??Some tenderness on palpation??slightly. Throat: Airway is widely patent with no obstruction. Cardiovascular:?normal??peripheral perfusion. Respiratory:?respirations??non-labored. ?? Extremities:??no??deformity,??no??trauma. Neurological:??oriented??x 4, LOC??appropriate for age, , speech??normal. Psychiatric:??cooperative, affect??appropriate for age,?? Medical Decision Making: Critical Care Time Spent Medical Decision-Making: ??Review and summarize past medical records -??Yes ?? Here the patient was stable. ??Differential diagnosis includes post dental extraction inflammation or infection. ??No signs of Rene angina or airway compromise.?? Does not appear to be a dry socket.?? The area where the tooth was extracted is closed.?? Patient reports??he has been unable to reach his dentist.?? For prudence I put him on Augmentin and wrote for the ibuprofen 800 mg tablets.??He is discharged in stable condition ? Procedure No Qualifying Data Assessment/Plan 1.??Status post tooth extraction??K08.409 Orders: !-Augmentin 875 mg-125 mg oral tablet, 1 tab, Oral, every 12 hr, X 7 days, # 14 tab, 0 Refill(s), 03/09/23 10:12:00 EDT, Pharmacy: [id number], 185, cm, 03/02/23 9:48:00 EDT, Height/Length Dosing, 136.08, kg, 03/02/23 9:48:00 EDT, Weight Dosing ibuprofen 800 mg oral tablet, 800 mg = 1 tab, Oral, every 8 hr, PRN pain, moderate, X 10 days, # 30tab, 0 Refill(s), 03/12/23 10:13:00 EDT, Pharmacy: [facility], 185, cm, 03/02/23 9:48:00 EDT, Height/Length Dosing, 136.08, kg, 03/02/23 9:48:00 EDT, Weight Dosing Discharge Patient, 03/02/23 10:12:00 EDT, Home Independently, Constant Indicator Patient Education Dental Pain, Rbnj-es-Vkef Follow Up With When Contact Information dentist Within 2 to 4 days, only if needed Additional Instructions: Medication Reconciliation New Prescription amoxicillin-clavulanate (!-Augmentin 875 mg-125 mg oral tablet)1 tab Oral (given by mouth) every 12hours for 7 Days. Refills: 0. ?? ibuprofen (ibuprofen 800 mg oral tablet)1 tab Oral (given by mouth) every 8 hours as needed pain, moderate for 10 Days. Refills: 0. ?? Unchanged albuterol (Ventolin HFA 90 mcg/inh inhalation aerosol)2 Puffs Inhale (breathe in) every 4 hours as needed as needed for wheezing. Refills: 2. ?? cyclobenzaprine (cyclobenzaprine 5 mg oral tablet)1 tab Oral (given by mouth) 3 times a day for 10 Days. Refills: 0. ?? lisinopril (lisinopril 2.5 mg oral tablet)1 tab Oral (given by mouth) every day. Refills: 3. ?? meloxicam (meloxicam 15 mg oral tablet)1 tab Oral (given by mouth) every day. Take with food, DO NOT TAKE WITH OTHER NSAID's. Refills: 1. ?? omeprazole (omeprazole 20 mg oral delayed release capsule)TAKE ONE CAPSULE BY MOUTH EVERY DAY. Refills: 3. ?? simvastatin (simvastatin 20 mg oral tablet)1 tab Oral (given by mouth) every night at bedtime. Refills: 3. ?? tamsulosin (tamsulosin 0.4 mg oral capsule)1 Capsules Oral (given by mouth) every day. TAKE TWO CAPSULES BY MOUTH EVERY DAY. Refills: 3. Problem List/Past Medical History Ongoing AAA (abdominal aortic aneurysm) BMI 40.0-44.9, adult Cervical radiculopathy Chronic pain of right knee Degeneration of lumbar intervertebral disc Essential hypertension Gastroesophageal reflux disease without esophagitis Generalized anxiety disorder Hyperlipidemia Injury of tendon of the rotator cuff of shoulder Insomnia Kidney stone Low back pain Lower urinary tract symptoms due to benign prostatic hypertrophy Male infertility Microscopic hematuria Mononeuritis Opioid abuse Osteoarthritis of right knee joint Pain in thoracic spine Pain of left shoulder joint Prediabetes Sleep apnea Smoker Snoring Tremor Ureteric stone Historical Body mass index 30+ - obesity Procedure/Surgical History ???Appendectomy???Exploratory laparotomy???shoulder surgery Allergies doxycycline amitriptyline??(Dizziness) buPROPion Social History Alcohol Never Electronic Cigarette/Vaping Electronic Cigarette Use: Never. Nutrition/Health Diet: Regular. Caffeine intake amount: 3-4 cups of coffee daily. Other reports he is also allergic to an antibiotic that startes with a C 12/10/2021 Substance Use Never Tobacco Current everyday tobacco user Tobacco Use:. Down from a pack and a half to a pack now. per day. Family History Chronic lung disease: Other. Diabetes mellitus: Other. Heart disease: Other. Malignant tumor of colon: Mother. Malignant tumor of stomach: Other. Sleep apnea: Other. Family Member(s): ?? MOTHER, at age: Unknown. Cause of : Electronically Signed on 03/02/23 10:20 AM Demario Llanos MD Emergency department Discharge instructions * Demario Llanos MD: PERFORM Event Display: ED Discharge Information Authored Date: [id number] YVETTE BOOKER :1965 Age:57 years Sex:Male Visit Date:03/02/2023 Primary Care Physician: Ray Bowen RESEARCH RECRUITER Discharge Instructions We would like to thank you for allowing us to assist you with your healthcare needs. The following includes patient education materials and information regarding your injury/illness. Diagnosis from Today's Visit Status post tooth extraction Discharge Vitals Temperature??(Temporal Artery) 95.5 ??F (35.3 ??C) Heart Rate??(Peripheral) 80 Respiratory Rate?? 18 Blood Pressure?? 179/108?? Height?? 72.83 in (185.000 cm) Weight??(Estimated) 300.06 lb (136.08 kg) Allergies doxycycline amitriptyline??(Dizziness) buPROPion What to Do Next Instructions from Your Care Team Scription for Augmentin to treat potential infection as well as ibuprofen to treat inflammation andpain sent to your pharmacy. ??Follow-up with your dentist??if no improvement. You Need to Schedule the Following Appointments Follow Up with??dentist When:??Within 2 to 4 days, only if needed Upcoming Scheduled Appointments Monday 12:10 PM EDT ?? Where: [facility] Status: Confirmed Monday 1:30 PM EDT ?? Monday 10:00 AM EDT ?? You were treated today on an [...] Much When Why Instructions Next Dose New amoxicillin-clavulanate (!- Augmentin 875 mg-125 mg oral tablet) 1 tab Oral (given by mouth) Every 12 hours Duration: 7 Days Pickup at [facility] New ibuprofen (ibuprofen 800 mg oral tablet) 1 tab Oral (given by mouth) Every 8 hours as needed for pain, moderate Duration: 10 Days Pickup at [facility] Unchanged albuterol (Ventolin HFA 90 mcg/ inh inhalation aerosol) 2 Puffs Inhale (breathe in) Every 4 hours as needed for as needed for wheezing Chronic obstructive lung disease Unchanged cyclobenzaprine (cyclobenzaprine 5 mg oral tablet) 1 tab Oral (given by mouth) 3 times a day Lumbar back pain with radiculopathy affecting right lower extremity Duration: 10 Days Unchanged lisinopril (lisinopril 2.5 mg oral tablet) 1 tab Oral (given by mouth) Every day Unchanged meloxicam (meloxicam 15 mg oral tablet) 1 tab Oral (given by mouth) Every day Take with food, DO NOT TAKE WITH OTHER NSAID's ?? Unchanged [...] BY MOUTH EVERY DAY ?? Pharmacy Information [facility]: [address] [place], [place] [id number] [phone] Education Materials Dental Pain Dental pain is often a sign that something is wrong with your teeth or gums. You can also have painafter a dental treatment. If you have dental pain, it is important to contact your dentist, especially if the cause of the pain is not known. Dental pain may hurt a lot or a little and can be caused by many things, including: ? Tooth decay (cavities or caries). ? Infection. ? The inner part of the tooth being filled with pus (an abscess). ? Injury. ? A crack in the tooth. ? Gums that move back and expose the root of a tooth. ? Gum disease. ? Abnormal grinding or clenching of teeth. ? Not taking good care of your teeth. Sometimes the cause of pain is not known. You may have pain all the time, or it may happen only when you are: ? Chewing. ? Exposed to hot or cold temperatures. ? Eating or drinking foods or drinks that have a lot of sugar in them, such as soda or candy. Follow these instructions at home: Medicines ? Take btgc-wkh-rzadcks and prescription medicines only as told by your dentist. ? If you were prescribed an antibiotic medicine, take it as told by your dentist. Do not stop taking it even if you start to feel better. Eating and drinking Do not eat foods or drinks that cause you pain. These include: ? Very hot or very cold foods or drinks. ? Sweet or sugary foods or drinks. Managing pain and swelling ? If told, put ice on the painful area of your face. To do this: ? Put ice in a plastic bag. ? Place a towel between your skin and the bag. ? Leave the ice on for 20 minutes, 2???3 times a day. ? Take off the ice if your skin turns bright red. This is very important. If you cannot feel pain, heat, or cold, you have a greater risk of damage to the area. Brushing your teeth ? [place] your teeth twice a day using a fluoride toothpaste. ? Use a toothpaste made for sensitive teeth as told by your dentist. ? Use a soft toothbrush. General instructions ? Floss your teeth at least once a day. ? Do not put heat on the outside of your face. ? Rinse your mouth often with salt water. To make salt water, dissolve ?1 tsp (3???6 g) of salt in 1 cup (237 mL) of warm water. ? Watch your dental pain. Let your dentist know if there are any changes. ? Keep all follow-up visits. Contact a dentist if: ? You have dental pain and you do not know why. ? Medicine does not help your pain. ? Your symptoms get worse. ? You have new symptoms. Get help right away if: ? You cannot open your mouth. ? You are having trouble breathing or swallowing. ? You have a fever. ? Your face, neck, or jaw is swollen. These symptoms may be an emergency. Get help right away. Call your local emergency services (911 int [place] ? Do not wait to see if the symptoms will go away. ? Do not drive yourself to the hospital. Summary ? Dental pain may be caused by many things, including tooth decay, injury, or infection. In some cases, the cause is not known. ? Dental pain may hurt a lot or very little. You may have pain all the time, or you may have it only when you eat or drink. ? Take pcdu-gba-jptnomm and prescription medicines only as told by your dentist. ? Watch your dental pain for any changes. Let your dentist know if symptoms get worse. This information is not intended to replace advice given to you by your health care provider. Make sure you discuss any questions you have with your health care provider. Document Revised: 07/07/2021 Document Reviewed: 07/07/2021 [employer] Patient Education ?? 2021 [employer] Patient/Striping Machine Operator Signature Patient Name:YVETTE BOOKER I have received this information and my questions have been answered. Patient/Striping Machine Operator Name: Patient/Striping Machine Operator Signature: Relationship to Patient: Witness Name/Signature: Date: Electronically Signed on: 03/02/2023 10:16 EDTSigned by:RUDI Patient Care team information Care Team Personnel Name: Ray Bowen NP Position: Physician Member Role: Informed Provider Name: Demario Llanos MD Position: Physician Member Role: ED Physician Address: Address: [address] [place] [address] [place] Name: Bharati Burnett Position: Nurse Member Role: ED Nurse Care Team Related Persons Name: LOYDA BENZ
--- OUTSIDE RECORDS SUMMARY | 2024-04-24 14:11 | XMS_ITS | Continuity of Care Document ---
Author Name Unknown Organization [facility] Address [address] [place] [address] Care Team Providers Care Barrel Loader Name Role Phone Ray Bowen Primary Care Physician Encounter [facility] Date(s): 10/28/22 - 10/28/[address] [address] Encounter Diagnosis Chronic sinusitis(Discharge Diagnosis) - 10/28/22 Discharge Disposition: Home or Self Care Attending Physician: Ray Bowen POWERHOUSE OILER Admitting Physician: Ray Bowen NP Referring Physician: Ray Bowen POWERHOUSE OILER Allergies, Adverse Reactions, Alerts Substance Reaction Severity [...] virus vaccine, inactivated 09/29/09 Freddie rded Medications Augmentin 500 mg-125 mg oral tablet 1 tab, Oral, TID, # 30 tab, 0 Refill(s), Pharmacy: [facility], 185.45, cm, 10/20/22 1:05:00 EST, Height/Length Dosing, 147.95, kg, 10/20/22 1:05:00 EST, Weight Dosing Start Date: 10/28/22 Stop Date: 11/07/22 Status: Ordered cetirizine 10 mg oral tablet 10 mg = 1 tab, Oral, Daily, Take one tab daily., # 90 tab, 1 Refill(s), Pharmacy: [facility], 185, cm, 06/24/22 10:48:00 EDT, Height/Length Dosing, 133.81, kg, 06/24/22 10:48:00 EDT, WeightDosing Start Date: 09/19/22 Status: Ordered cyclobenzaprine 5 mg oral tablet 5 mg = 1 tab, Oral, TID, # 30 tab, 0 Refill(s), Pharmacy: [facility], 185.45, cm, 10/20/22 1:05:00 EST, Height/Length Dosing, 147.95, kg, 10/20/22 1:05:00 EST, Weight Dosing Start Date: 10/20/22 Stop Date: 10/30/22 Status: Ordered fluticasone 27.5 mcg/inh nasal spray 2 sprays, Nasal, Daily, PRN as needed for allergy symptoms, # 10 g, 0 Refill(s), Pharmacy: [facility], 185, cm, 06/24/22 10:48:00 EDT, Height/Length Dosing, 133.81, kg, 06/24/22 10:48:00 EDT, Weight Dosing Start Date: 09/16/22 Status: Ordered lisinopril 2.5 mg oral tablet 2.5 mg = 1 tab, Oral, Daily, # 90 tab, 3 Refill(s), Pharmacy: [facility], 185, cm, 06/24/22 10:48:00 EDT, Height/Length Dosing, 133.81, kg, 06/24/22 10:48:00 EDT, Weight Dosing Start Date: 09/25/22 Status: Ordered meloxicam 15 mg oral tablet 15 mg = 1 tab, Oral, Daily, Take with food, DON NOT TAKE WITH OTHER NSAID's, # 30 tab, 1 Refill(s),Pharmacy: [facility], 185, cm, 06/24/22 10:48:00 EDT, Height/Length Dosing, 133.81, kg, 06/24/22 10:48:00 EDT, Weight Dosing Start Date: 09/16/22 Status: Ordered omeprazole 20 mg oral delayed release capsule See Instructions, TAKE ONE CAPSULE BY MOUTH EVERY DAY, # 90 cap, 1 Refill(s), Pharmacy: [facility], 185, cm, 06/24/22 10:48:00 EDT, Height/Length [...] EVERY DAY, # 90 cap, 3 Refill(s), Pharmacy:[facility], 185, cm, 06/24/22 10:48:00 EDT, Height/Length Dosing, 133.81, kg, 06/24/22 10:48:00 EDT, Weight Dosing Start Date: 10/05/22 Status: Ordered Ventolin HFA 90 mcg/inh inhalation aerosol 2 puffs, Inhale, every 4 hr, PRN as needed for wheezing, # 18 g, 2 Refill(s), Pharmacy: [facility], 185, cm, 06/24/22 10:48:00 EDT, Height/Length [...]
--- OUTSIDE RECORDS SUMMARY | 2024-04-24 14:11 | XMS_ITS | Continuity of Care Document ---
Author Name Unknown Organization [facility] Address [address] [place] [address] Care Team Providers Care Florist Designer Name Role Phone Ray Rivers Primary Care Physician [facility]/19/[facility] - 07/21/23 [facility] [address] [place] [address] Discharge Disposition: Home or Self Care Attending Physician: Bryce Vieyra MD Admitting Physician: Bryce Vieyra MD Referring Physician: Ray Bowen OYSTERMAN Allergies, Adverse Reactions, Alerts Substance Reaction Severity Status doxycycline Mild Active amitriptyline 1 Dizziness Unknown Active buPROPion Unknown Active 1%22out of it%22 all the time-hard time waking up. very fatigued-i Assessment and Plan Future Appointments Future Scheduled Tests Radiology* XR Foot Complete 3+ Views Left 05/31/23 Functional Status 01/19/23 Other exposure to Infectious Disease Non e [...] instructions, # 100 EA, 3 Refill(s), Pharmacy: [facility] Start Date: 06/02/23 Status: Ordered cyclobenzaprine 5 mg oral tablet 5 mg = 1 tab, Oral, TID, # 30 tab, 0 Refill(s), Pharmacy: [facility], 185.45, cm, 10/20/22 1:05:00 EST, Height/Length Dosing, 147.95, kg, 10/20/22 1:05:00 EST, Weight Dosing Start Date: 10/20/22 Stop Date: 10/30/22 Status: Ordered Glucometer Glucometer, Check blood sugar fasting daily., Supply, See instructions, # 1 EA, 0 Refill(s), Pharmacy: [facility] Start Date: 06/02/23 Status: Ordered ibuprofen 600 mg oral tablet 600 mg = 1 tab, Oral, every 8 hr, # 270 tab, 1 Refill(s), Pharmacy: [facility], 185, cm, 03/02/23 9:48:00 EDT, Height/Length Dosing, 136.08, kg, 03/02/23 9:48:00 EDT, Weight Dosing Start Date: 05/31/23 Status: Ordered Jardiance 10 mg oral tablet 10 mg = 1 tab, Oral, every morning, # 30 tab, 0 Refill(s), Pharmacy: [facility], 185, cm,03/02/23 9:48:00 EDT, Height/Length Dosing, 136.08, kg, 03/02/23 9:48:00 EDT, Weight Dosing Start Date: 07/07/23 Status: Ordered lisinopril 2.5 mg oral tablet 2.5 mg = 1 tab, Oral, Daily, # 90 tab, 3 Refill(s), Pharmacy: [facility], 185, cm, 06/24/22 10:48:00 EDT, Height/Length Dosing, 133.81, kg, 06/24/22 10:48:00 EDT, Weight Dosing Start Date: 09/25/22 Status: Ordered meloxicam 15 mg oral tablet 15 mg = 1 tab, Oral, Daily, Take with food, DO NOT TAKE WITH OTHER NSAID's, # 30 tab, 1 Refill(s), Pharmacy: [facility], 185.45, cm, 10/20/22 1:05:00 EST, Height/Length Dosing, 147.95, kg, 10/20/22 1:05:00 EST, Weight Dosing Start Date: 11/22/22 Status: Ordered omeprazole 20 mg oral delayed release capsule See Instructions, TAKE ONE CAPSULE BY MOUTH EVERY DAY, # 90 cap, 3 Refill(s), Pharmacy: [facility], 185.45, cm, 10/20/22 1:05:00 EST, Height/Length Dosing, 147.95, kg, 10/20/22 1:05:00 EST,Weight Dosing Start Date: 01/04/23 Status: Ordered One Touch Test Strips One Touch Test Strips, Check blood sugar fasting daily., Supply, See instructions, # 100 EA, 3 Refill(s), Pharmacy: [facility] Start Date: 06/02/23 Status: Ordered predniSONE 20 mg oral tablet 60 mg = 3 tab, Oral, Daily, # 12 tab, 0 Refill(s), Pharmacy: [facility], 185, cm, 03/02/23 9:48:00 EDT, Height/Length Dosing, 136.08, kg, 03/02/23 9:48:00 EDT, Weight Dosing Start Date: 05/02/23 Stop Date: 05/06/23 Status: Ordered simvastatin 20 mg oral tablet 20 mg = 1 tab, Oral, every night at bedtime, # 90 tab, 3 Refill(s), Pharmacy: [facility],185.45, cm, 10/20/22 1:05:00 EST, Height/Length Dosing, 147.95, kg, 10/20/22 1:05:00 EST, Weight Dosing Start Date: 01/04/23 Status: Ordered tamsulosin 0.4 mg oral capsule 0.4 mg = 1 cap, Oral, Daily, TAKE TWO CAPSULES BY MOUTH EVERY DAY, # 90 cap, 3 Refill(s), Pharmacy:[facility], 185.45, cm, 10/20/22 1:05:00 EST, Height/Length Dosing, 147.95, kg, 10/20/22 1:05:00 EST, Weight Dosing Start Date: 02/27/23 Status: Ordered terbinafine 250 mg oral tablet 250 mg = 1 tab, Oral, Daily, # 42 tab, 0 Refill(s), Pharmacy: [facility], 185, cm, 03/02/23 9:48:00 EDT, Height/Length Dosing, 136.08, kg, 03/02/23 9:48:00 EDT, Weight Dosing Start Date: 05/02/23 Stop Date: 06/13/23 Status: Ordered traMADol 50 mg oral tablet 50 mg = 1 tab, Oral, Daily, # 30 tab, 0 Refill(s), Pharmacy: [facility], 185, cm, 03/02/23 9:48:00 EDT, Height/Length Dosing, 136.08, kg, 03/02/23 9:48:00 EDT, Weight Dosing Start Date: 05/05/23 Status: Ordered Ventolin HFA 90 mcg/inh inhalation aerosol 2 puffs, Inhale, every 4 hr, PRN as needed for wheezing, # 18 g, 2 Refill(s), Pharmacy: [facility], 185, cm, 06/24/22 10:48:00 EDT, Height/Length [...] Most recent to oldest [Reference Range]: 1 Weight Estimated 133.81 kg (01/19/23 3:27 PM) Social History Social History Type Response Tobacco Current everyday tob acco user Tobacco Use:. Down from a pack and a half to a pack now. per day. Sex Male History and physical note * Michelle Galindo: PERFORM Event Display: History and Physical Authored Date: [id number] YVETTE BOOKER :1965 Age:57 years Sex:Male Primary Care Physician: Ray Bowen NP * Final Report * YVETTE BOOKER :?1965 Age:??57 years Sex:??Male Visit Date:??12/12/2022 Primary Care Physician: ??Ray Bowen NP Chief Complaint Sinusitis Assessment/Plan 1.??Maxillary sinusitis??J32.0 Problem List/Past Medical History Ongoing ?AAA (abdominal aortic aneurysm) ??BMI 40.0-44.9, adult ??Cervical radiculopathy ??Chronic pain of right knee ??Degeneration of lumbar intervertebral disc ??Essential hypertension ??Gastroesophageal reflux disease without esophagitis ??Generalized anxiety disorder ??Hyperlipidemia ??Injury of tendon of the rotator cuff of shoulder ??Insomnia ??Kidney stone ??Low back pain ??Lower urinary tract symptoms due to benign prostatic hypertrophy ??Male infertility ??Microscopic hematuria ??Mononeuritis ??Opioid abuse ??Osteoarthritis of right knee joint ??Pain in thoracic spine ??Pain of left shoulder joint ??Prediabetes ??Sleep apnea ??Smoker ??Snoring ??Tremor ??Ureteric stone Historical ?Body mass index 30+ - obesity Procedure/Surgical History ???Appendectomy ?? Medications ??Augmentin 500 mg-125 mg oral tablet, 1 tab, Oral, TID ??cetirizine 10 mg oral tablet, 10 mg= 1 tab, Oral, Daily, 1 refills ??cyclobenzaprine 5 mg oral tablet, 5 mg= 1 tab, Oral, TID ??fluticasone 27.5 mcg/inh nasal spray, 2 sprays, Nasal, Daily, PRN ??lisinopril 2.5 mg oral tablet, 2.5 mg= 1 tab, Oral, Daily, 3 refills ??meloxicam 15 mg oral tablet, 15 mg= 1 tab, Oral, Daily, 1 refills ??omeprazole 20 mg oral delayed release capsule, See Instructions ??simvastatin 20 mg oral tablet, 20 mg= 1 tab, Oral, every night at bedtime ??tamsulosin 0.4 mg oral capsule, 0.4 mg= 1 cap, Oral, Daily, 3 refills ??Ventolin HFA 90 mcg/inh inhalation aerosol, 2 puffs, Inhale, every 4 hr, PRN, 2 refills Allergies doxycycline amitriptyline??(Dizziness) buPROPion Social History Alcohol ??Never Electronic Cigarette/Vaping ??Electronic Cigarette Use: Never. Nutrition/Health ??Diet: Regular. Caffeine intake amount: 3-4 cups of coffee daily. Other ??reports he is also allergic to an antibiotic that startes with a C 12/10/2021 Substance Use ??Never Tobacco ??Current everyday tobacco user Tobacco Use:. Down from a pack and a half to a pack now. per day. Family History ??Chronic lung disease: Other. ??Diabetes mellitus: Other. ??Heart disease: Other. ??Malignant tumor of colon: Mother. ??Malignant tumor of stomach: Other. ??Sleep apnea: Other. ? Family Member(s): ?MOTHER, at age: Unknown. Cause of : ?? Immunizations ??Vaccine ??Date ??Status ??tetanus/diphth/pertuss (Tdap) adult/adol ??06/24/2022 ??Given ??influenza, unspecified formulation ??07/03/2021 ??Recorded ??SARS-CoV-2 (COVID-19) mRNA-1273 vaccine ??02/05/2021 ??Recorded ??SARS-CoV-2 (COVID-19) mRNA-1273 vaccine ??01/08/2021 ??Recorded ??tetanus/diphth/pertuss (Tdap) adult/adol ??12/04/2020 ??Recorded ??influenza virus vaccine, live ??06/26/2020 ??Recorded ??influenza virus vaccine, inactivated ??07/25/2014 ??Recorded ??influenza virus vaccine, inactivated ??06/27/2013 ??Recorded ??influenza virus vaccine, inactivated ??08/21/2012 ??Recorded ??influenza virus vaccine, inactivated ??07/18/2011 ??Recorded ??tetanus/diphth/pertuss (Tdap) adult/adol ??07/18/2011 ??Recorded ??influenza virus vaccine, inactivated ??10/04/2010 ??Recorded ??influenza virus vaccine, inactivated ??09/29/2009 ??Recorded ?? [1] Ambulatory Visit Instructions We would like to thank you for allowing us to assist you with your healthcare needs. The following includes patient education materials and information regarding your injury/illness. Your Next Steps Scheduled Future Appointments Monday 9:40 AM EDT ?? With: Ray Bowen OYSTERMAN Where: [address] [address] Status: Confirmed Medications What How Much When Why Instructions Unchanged albuterol (Ventolin HFA 90 mcg/ inh inhalation aerosol) 2 Puffs Inhale (breathe in) Every 4 hours as needed for as needed for wheezing Chronic obstructive lung disease Unchanged amoxicillin-clavulanate (Augmentin 500 mg-125 mg oral tablet) 1 tab Oral (given by mouth) 3 times a day Chronic sinusitis Duration: 10 Days Unchanged cetirizine (cetirizine 10 mg oral tablet) 1 tab Oral (given by mouth) Every day Acute sinusitis Take one tab daily. ?? Unchanged cyclobenzaprine (cyclobenzaprine 5 mg oral tablet) 1 tab Oral (given by mouth) 3 times a day Lumbar back pain with radiculopathy affecting right lower extremity Duration: 10 Days Unchanged fluticasone nasal (fluticasone [...] TWO CAPSULES BY MOUTH EVERY DAY ?? Your Summary Problems Ongoing - Any problem that you are currently receiving treatment for. AAA (abdominal aortic aneurysm) BMI 40.0-44.9, adult [...] apnea Smoker Snoring Tremor Ureteric stone Historical - Any problem that you are no longer receiving treatment for. Body mass index 30+ - obesity Your Care Team Admitting Physician - Bryce Vieyra MD Attending Physician - Bryce Vieyra MD Primary Care Physician - Ray Bowen NP Allergies doxycycline amitriptyline??(Dizziness) buPROPion [1]??Office Visit Note; Bryce Vieyra MD 12/12/2022 10:12 EST Electronically Signed on 01/19/23 02:10 PM Michelle Galindo Reviewed by: Bryce Vieyra MD Patient Care team information Care Team Personnel Name: Jane Salas Position: Ambulatory - RN/[employer] (Ankush) Member Role: Residential Care Officer Name: Ray Rivers OYSTERMAN Position: Physician Member Role: Informed Provider Care Team Related Persons Name: LOYDA BENZ
== END ==
PROVIDERS: PCP Registered Nurse; Visit Provider Preventive Medicine Occupational Medicine
DX: M25.562 Pain in left knee (principal)
CPT/HCPCS: 73562

== ENCOUNTER 2024-05-01 15:03 | Outpatient (CLI) | payer MEDICARE, MEDICAID, SELFPAY ==
--- NOTE | 2024-05-01 06:00 | DI.RAD_ITS ---
Exam(s) XR PAIN CLINIC FLUORO JOINT IN EXAM: XR PAIN CLINIC FLUORO JOINT IN CLINICAL HISTORY: Chronic Pain of Left Knee. TECHNIQUE: Fluoroscopy was provided for the referring physician for guidance with performing pain cl inic injection procedure. COMPARISON: No exams were available for comparison FINDINGS: Please see procedure note for details. Fluoro time: 13.7 seconds RADIATION DOSE DELIVERED: saray Garsia=1.07 mGy
[2024-05-01 15:18] VITALS: BP 131/87; PULSE 62; RESP 20; TEMP 36.7; O2SAT 92
[2024-05-01 15:55] VITALS: PULSE 82; O2SAT 94
--- NOTE | 2024-05-01 15:55 | PDOC.PAIN ---
Date of service: 05/01/24 Time of Service: 15:55 Pain Managment Procedure Note Procedure Note Procedure Note: PROCEDURE NOTE LEFT INTRA-ARTICULAR KNEE JOINT SYNVISC INJECTION Date of Service: May 01, 2024 Patient:? Ariana Canas? Provider:? Murali Mosley DO, MPH Ariana Canas has been [facility] to the [facility] for LEFT intra-articular knee joint Synvisc injection. Pre-operative diagnosis: Knee Osteoarthritis Post-operative diagnosis: Same Pre-procedure pain: VAS=7/10 COMMENTS: I previously evaluated him in the office. He has significant OA to the left knee joint. Ariana?was interviewed and the medical record was reviewed.? There were no medical, pharmacologic, radiographic or other structural contraindications to attempting fluoroscopically guided LEFT intra-articular knee joint Synvisc injection.? Risks and expected side effects as well as potential benefit of the procedure were reviewed with Ariana, and the patient's voiced concerns were addressed.? The printed consent form was signed.? Standard time-out procedure was performed. Ariana was placed in the supine position on the fluoroscopy table and the pulse oximeter was applied. The skin entry point for approaching superolateral aspect of the LEFT patellafemoral area was identified under the most advantageous fluoroscopic view and marked. Following thorough Chlorhexadine preparation of the skin and draping, 1% lidocaine infiltration of the skin entry point and subcutaneous tissues was accomplished using a 1.5 25G needle. Next, the 1.5 18G needle was advanced to the center of the patella in a lateral to medial approach under fluoroscopic guidance into the LEFT knee joint. Intra-articular placement was confirmed by a clear arthrogram resulting from the injection of 2 ml Omnipaque 240. Next, 6 cc of Synvisc-One followed by 2 mls of 1% Lidocaine was injected into the joint. (48 mls of Omnipaque was wasted). There was no unusual discomfort expressed by Ariana. The needle was withdrawn without difficulty. Ariana was observed and was without hemodynamic, neurologic, or allergic reactions.? Fluoroscopic images were digitally archived. Ariana's vital signs were stable throughout the procedure and were as recorded in the docflowsheet by the nursing staff. If given, dosages of intravenous drugs for anxiolysis and analgesia were documented in MAR. Follow up plans and appointments were discussed with Ariana.? Post procedure instruction was given as documented in nursing documentation and having met discharge criteria, Ari[facility] COMMENTS: No apparent complications. Post-procedure pain: VAS= 0/10. Ariana to contact [facility] as needed. If at least 50% improvement in pain and/or function for at least 6 months is achieved, this procedure can be repeated. I personally completed the entire procedure. MURALI MOSLEY DO, MPH ABPM[employer]R - Subspecialty board certification in Pain Medicine [facility]
[2024-05-01] MEDS: Lidocaine 2% Pres-Free 5 ML VIAL IJ (15:56)
[2024-05-01] MEDS: Nerve Block Tray 1 EACH MC (15:56)
[2024-05-01] MEDS: Omnipaque 240 MG/ML 50 ML BTL IJ (15:56)
[2024-05-01] MEDS: Hylan G-F 20 48 MG/6 ML SYR IU (15:57)
== END 2024-05-01 15:04 | disposition home or self-care (01) ==
LOC: PC 15:05
PROVIDERS: PCP Registered Nurse; Visit Provider Preventive Medicine Occupational Medicine
DX: M17.12 Unilateral primary osteoarthritis, left knee (principal)
CPT/HCPCS: 20610; 77002; J7325; Q9967